=== PATIENT | female | born 1985 | race Caucasian/White ===

== ENCOUNTER 2016-12-26 20:55 | Emergency (ER) | payer SELFPAY ==
[~2016-12-26 20:55] MED LIST: CIPR500T94 PO; METR500T PO; OXYC-323 PO
[2016-12-26] MEDS ORDERED: LORAZEPAM 1 MG TABLET. PO ONE (21:30)
[2016-12-26] MEDS ORDERED: METOCLOPRAMIDE HCL 10 MG/2 ML VIAL. IV ONE (21:30)
[2016-12-26] MEDS ORDERED: IV NORMAL SALINE 1000ML BAG 1,000 ML IV ONE (21:30)
[2016-12-26] MEDS ORDERED: DIPHENHYDRAMINE 50 MG/ML VIAL IVP ONE (21:30)
[2016-12-26 22:24] VITALS: BP 143/79
--- NOTE | 2016-12-26 22:47 | PHYS DOC ---
Past Medical History Past Medical History: Asthma, COPD Additional Past Medical Histor: emphysema, chrohns Past Surgical History: Appendectomy Alcohol Use: None Drug Use: None Adult General Chief Complaint Chief Complaint: HEADACHE HPI HPI 31-year-old female presenting to the emergency department with headache. She has a history of headaches and her headache is similar to her previous migraines. She denies any focal numbness weakness or tingling. She denies vision changes. Her pain is moderate to severe. It is nonradiating sharp and without alleviating factors. Review of systems is negative for chest pain shortness of breath nausea vomiting. All other review of systems is negative unless otherwise noted in history of present illness. Review of Systems Review of Systems SEE ABOVE. Current Medications Current Medications Current Medications Medications (Trade) Dose Ordered Sig/Evelia Start Time Stop Time Status Last Admin Dose Admin Diphenhydramine HCl 50 mg 50 mg 1X ONCE 12/26/16 21:30 12/26/16 21:31 DC 12/26/16 21:51 50 MG Lorazepam (Ativan) 0.5 mg 1X ONCE 12/26/16 21:30 12/26/16 21:31 DC 12/26/16 21:52 0.5 MG Metoclopramide HCl (Reglan) 20 mg 1X ONCE 12/26/16 21:30 12/26/16 21:31 DC 12/26/16 21:30 20 MG Sodium Chloride (Iv Sodium Chloride 0.9% 1000ml Bag) 1,000 ml @ 1,000 mls/hr 1X ONCE 12/26/16 21:30 12/26/16 22:29 DC 12/26/16 21:30 1,000 MLS/HR Allergies Allergies Allergies Coded Allergies Type Severity Reaction Last Updated Verified codeine Allergy Severe Swelling 10/17/16 Yes doxycycline Allergy Severe Swelling 10/17/16 Yes Physical Exam Physical Exam Constitutional: Well developed, well nourished, no acute distress, non-toxic appearance. HENT: Normocephalic, atraumatic, bilateral external ears normal, oropharynx moist, no oral exudates, nose normal. [] Eyes: PERRLA, EOMI, conjunctiva normal, no discharge. Neck: Normal range of motion, no tenderness, supple, no stridor. [] Cardiovascular:Heart rate regular rhythm, no murmur Lungs & Thorax: Bilateral breath sounds clear to auscultation [] Abdomen: Bowel sounds normal, soft, no tenderness, no masses, no pulsatile masses. [] Skin: Warm, dry, no erythema, no rash. Back: No tenderness, no CVA tenderness. [] Extremities: No tenderness, no cyanosis, no clubbing, ROM intact, no edema. Neurologic: Mental status: Awake oriented and alert x3 Cranial nerves: Extraocular movements intact, eyebrows mauri bilaterally smile symmetric, uvula elevation, shoulder shrug intact, tongue protrusion normal Sensation: equal and normal in all extremities Strength: 5/5 in upper and lower extremities bilaterally Psychologic: Affect normal, judgement normal, mood normal. [] Current Patient Data Vital Signs Vital Signs Date Time Temp Pulse Resp B/P Pulse Ox O2 Delivery O2 Flow Rate FiO2 12/26/16 22:24 87 18 143/79 97 Room Air EKG EKG [] Radiology/Procedures Radiology/Procedures [] Course & Med Decision Making Course & Med Decision Making Pertinent Labs and Imaging studies reviewed. (See chart for details) [] 31-year-old female presenting to the emergency department a headache similar to her previous headaches. Vital signs showed mild hypertension. Pulse and respiratory rate within normal limits. Normal neurologic exam is the pertinent physical exam here. Head CT negative. IV established along with blood work and oral anxiety medications administered. Patient sleeping comfortably in our examination room on repeat evaluation. Patient subsequently discharged home to follow up with PCP for chronic migraine management. Dragon Disclaimer Dragon Disclaimer This electronic medical record was generated, in whole or in part, using a voice recognition dictation system. Departure Departure Impression: Primary Impression: Migraine Disposition: 01 HOME, SELF-CARE Condition: STABLE Referrals: NO PCP (PCP) TATIANA NELSON MD Patient Instructions: General Headache Without Cause, [id number] Additional Instructions: Thank you for allowing us to participate in your care today. Followup with your primary care physician in 3 days if your symptoms do not improve. If you do not have a primary care provider you can ask for a list of our primary care providers. Return to the emergency department you have any new or concerning findings. This should be evaluated by the primary care physician and any necessary consulting services for continued management within a few days after discharge. Return to emergency room if you have any new or concerning symptoms including but not limited to fever, chills, nausea, vomiting, intractable pain, any new rashes, chest pain, shortness of air, uncontrolled bleeding, difficulty breathing, and/or vision loss. SIRI BA MD Dec 26, 2016 22:47
--- NOTE | 2016-12-26 23:01 | RAD ---
PROCEDURE CT head without contrast. HISTORY Severe headache. Poor historian. TECHNIQUE Noncontrast CT head was obtained. One or more of the following individualized dose reduction techniques were utilized for this exam: 1. Automated exposure control. 2. Adjustment of the mA and/or kV according to patient's size. 3. Use of iterative reconstruction technique. COMPARISON July 09, 2015. FINDINGS The ventricles are normal in size and configuration. There is no intracranial hemorrhage or extra-axial fluid collection. There is no mass effect or midline shift. De Souza-white differentiation is preserved. There is no depressed skull fracture. The included paranasal sinuses and mastoid air cells are clear. IMPRESSION No acute intracranial findings. Electronically signed by: Rell Salgado MD (Dec 26, 2016 22:59:58)
== END 2016-12-26 23:40 | disposition home or self-care (01) ==
LOC: ER 20:55
DX: G43.909 Migraine, unspecified, not intractable, without status migrainosus (principal); J44.0 Chronic obstructive pulmonary disease with (acute) lower respiratory infection; J45.909 Unspecified asthma, uncomplicated; K50.90 Crohn's disease, unspecified, without complications; Z88.5 Allergy status to narcotic agent; Z88.1 Allergy status to other antibiotic agents; Z90.49 Acquired absence of other specified parts of digestive tract
CPT/HCPCS: 70450; 96361; 96374; 96375; 99284; J1200; J2765; J7030

== ENCOUNTER 2017-03-12 18:32 | Emergency (ER) | payer SELFPAY ==
[~2017-03-12] VITALS: Ht 162.6 cm; Wt 61.2 kg
[2017-03-12 18:45] VITALS: BP 157/100
[2017-03-12] MEDS ORDERED: ONDANSETRON PF 4 MG/2 ML VIAL. IV PRN (19:00)
[2017-03-12] MEDS ORDERED: IV NORMAL SALINE 1000ML BAG 1,000 ML IV ONE (19:00)
--- NOTE | 2017-03-12 19:04 | PHYS DOC ---
Past Medical History Past Medical History: Asthma, COPD Additional Past Medical Histor: emphysema, chrohns Past Surgical History: Appendectomy Alcohol Use: None Drug Use: None Adult General Chief Complaint Chief Complaint: ABDOMINAL PAIN HPI HPI 31 y.o f with a hx of chrons disease presenting to the Ed with abd pain. it is in the RLQ, severe nonradiating and associated with nausea. She denies being preg. She thinks it is a " chrons flare". ROS neg for cp, sob, diarrhea. She denies fever chills. the remainder of the ros is neg unless noted elsewhere. Pertinent exam: the pt has ttp in the rlq. no rebound or gaurding. lung ctab. otherwise unremarkable. ed course: 31 yo F presenting with RLQ abd pain. vitals. IVF and nausea and pain meds administered. labs taken. ct abd pelvis obtained. on reexamination, her abd was nontender and she was feeling better. Review of Systems Review of Systems see above Current Medications Current Medications Current Medications Medications (Trade) Dose Ordered Sig/Evelia Start Time Stop Time Status Last Admin Dose Admin Hydromorphone HCl (Dilaudid) 1 mg 1X ONCE 03/12/17 21:45 03/12/17 21:46 Info (Do NOT chart on this entry -- for MONITORING) 1 each PRN DAILY PRN 03/12/17 20:15 03/14/17 20:14 Iohexol (Omnipaque 300 Mg/ml) 75 ml 1X ONCE 03/12/17 20:15 03/12/17 20:16 DC 03/12/17 20:59 75 ML Metoclopramide HCl (Reglan) 10 mg 1X ONCE 03/12/17 21:45 03/12/17 21:46 Ondansetron HCl (Zofran) 4 mg PRN Q30MIN PRN 03/12/17 19:00 03/12/17 19:27 4 MG Sodium Chloride 1,000 ml @ 1,000 mls/hr 1X ONCE 03/12/17 19:00 03/12/17 19:59 DC 03/12/17 19:28 1,000 MLS/HR Allergies Allergies Allergies Coded Allergies Type Severity Reaction Last Updated Verified codeine Allergy Severe Swelling 10/17/16 Yes doxycycline Allergy Severe Swelling 10/17/16 Yes Physical Exam Physical Exam Constitutional: Well developed, well nourished, no acute distress, non-toxic appearance. HENT: Normocephalic, atraumatic, bilateral external ears normal, oropharynx moist, no oral exudates, nose normal. [] Eyes: PERRLA, EOMI, conjunctiva normal, no discharge. [] Neck: Normal range of motion, no tenderness, supple, no stridor. Cardiovascular:Heart rate regular rhythm, no murmur [] Lungs & Thorax: Bilateral breath sounds clear to auscultation Abdomen: see above Skin: Warm, dry, no erythema, no rash. [] Back: No tenderness, no CVA tenderness. Extremities: No tenderness, no cyanosis, no clubbing, ROM intact, no edema. [] Neurologic: Alert and oriented X 3, normal motor function, normal sensory function, no focal deficits noted. [] Psychologic: Affect normal, judgement normal, mood normal. [] Current Patient Data Vital Signs Vital Signs Date Time Temp Pulse Resp B/P (MAP) Pulse Ox O2 Delivery O2 Flow Rate FiO2 03/12/17 20:33 20 100 Room Air 03/12/17 18:45 98.2 118 157/100 (119) 98.2 Lab Values Laboratory Tests Test 03/12/17 19:00 03/12/17 19:41 03/12/17 20:30 White Blood Count 10.5 x10^3/uL (4.0-11.0) Red Blood Count 4.71 x10^6/uL (3.50-5.40) Hemoglobin 15.1 g/dL (12.0-15.5) Hematocrit 44.8 % (36.0-47.0) Mean Corpuscular Volume 95 fL (79-100) Mean Corpuscular Hemoglobin 32 pg (25-35) Mean Corpuscular Hemoglobin Concent 34 g/dL (31-37) Red Cell Distribution Width 13.9 % (11.5-14.5) Platelet Count 186 x10^3/uL (140-400) Neutrophils (%) (Auto) 48 % (31-73) Lymphocytes (%) (Auto) 39 % (24-48) Monocytes (%) (Auto) 9 % (0-9) Eosinophils (%) (Auto) 3 % (0-3) Basophils (%) (Auto) 1 % (0-3) Neutrophils # (Auto) 5.0 x10^3uL (1.8-7.7) Lymphocytes # (Auto) 4.1 x10^3/uL (1.0-4.8) Monocytes # (Auto) 0.9 x10^3/uL (0.0-1.1) Eosinophils # (Auto) 0.3 x10^3/uL (0.0-0.7) Basophils # (Auto) 0.1 x10^3/uL (0.0-0.2) Sodium Level 140 mmol/L (136-145) Potassium Level 3.8 mmol/L (3.5-5.1) Chloride Level 105 mmol/L (98-107) Carbon Dioxide Level 23 mmol/L (21-32) Anion Gap 12 (6-14) Blood Urea Nitrogen 10 mg/dL (7-20) Creatinine 0.7 mg/dL (0.6-1.0) Estimated GFR (Cockcroft-Gault) 97.6 BUN/Creatinine Ratio 14 (6-20) Glucose Level 96 mg/dL (70-99) Calcium Level 9.1 mg/dL (8.5-10.1) Total Bilirubin 0.8 mg/dL (0.2-1.0) Aspartate Amino Transferase (AST) 25 U/L (15-37) Alanine Aminotransferase (ALT) 40 U/L (14-59) Alkaline Phosphatase 93 U/L (46-116) Total Protein 7.8 g/dL (6.4-8.2) Albumin 4.0 g/dL (3.4-5.0) Albumin/Globulin Ratio 1.1 (1.0-1.7) Lipase 99 U/L (73-393) POC Urine HCG, Qualitative Hcg negative (Negative) Urine Collection Type Unknown Urine Color Yellow Urine Clarity Clear Urine pH 6.5 Urine Specific [place] 1.010 Urine Protein Negative mg/dL (NEG-TRACE) Urine Glucose (UA) Negative mg/dL (NEG) Urine Ketones (Stick) Negative mg/dL (NEG) Urine Blood Negative (NEG) Urine Nitrite Negative (NEG) Urine Bilirubin Negative (NEG) Urine Urobilinogen Dipstick 0.2 mg/dL (0.2 mg/dL) Urine Leukocyte Esterase Negative (NEG) Urine RBC 0 /HPF (0-2) Urine WBC Occ /HPF (0-4) Urine Squamous Epithelial Cells Many /LPF Urine Bacteria 0 /HPF (0-FEW) Laboratory Tests 03/12/17 19:00 Laboratory Tests 03/12/17 19:00 EKG EKG [] Radiology/Procedures Radiology/Procedures PROCEDURE: CT ABD PELV W/ IV CONTRST ONLY PQRS Compliance Statement: One or more of the following individualized dose reduction techniques were utilized for this examination: 1. Automated exposure control 2. Adjustment of the mA and/or kV according to patient size 3. Use of iterative reconstruction technique CT ABD PELV W/ IV CONTRST ONLY Clinical Indication: severe LLQ pain x several days, hx Crohn's, hx ovarian cysts, Comparison: CT abdomen and pelvis with contrast August 13, 2015. Technique: Helical CT imaging of the abdomen and pelvis is performed after 75 cc Omnipaque 350 IV contrast. Oral contrast not given. Findings: There is a 3 mm nodule in the left lower lobe, image 2. No follow-up is required per Fleischner Society criteria which is intended for adults greater than 35. Lungs otherwise clear. No pleural abnormality. Cardiac size normal. Liver, gallbladder, spleen, pancreas, adrenal glands, abdominal aorta, and kidneys are normal. Evaluation of bowel is limited without oral contrast. There are a few diverticula of the colon without inflammation. No colon wall thickening is identified. The terminal ileum is not thickened. Appendix surgically absent. No abdominal adenopathy or free fluid is seen. No obvious abnormality of the stomach. No dilated small bowel. Uterus unremarkable. IUD in the uterus, position appears appropriate. There appears to be a 1.7 cm peripherally enhancing right ovarian follicle. Finding likely physiologic. Left-sided follicle was seen on prior study. No pelvic free fluid. Urinary bladder is normal. No acute bone abnormality. IMPRESSION: No acute abdominal or pelvic abnormality. Electronically signed by: Gilberto Rausch MD (03/12/2017 9:13 PM) DICTATED and SIGNED BY: GILBERTO RAUSCH MD DATE: 03/12/172104[] Course & Med Decision Making Course & Med Decision Making Pertinent Labs and Imaging studies reviewed. (See chart for details) --- Assumed care from Dr. Ba at the end of shift. CT results as above. I went to the room to reassess the patient and she had vomited once. Give additional dose of Dilaudid and Reglan and she felt better. She was requesting discharge home. Recommended rest, by mouth hydration with small sips of clear liquid, gave prescriptions for Zofran for nausea and Newcomb for pain. No drinking alcohol or driving while taking Newcomb. Follow-up with primary care physician in 2-3 days. Return to the emergency department for high fever, severe pain, uncontrolled vomiting, any otherwise worsening condition. Discharged home in stable condition. Sindy Norris MD [] Dragon Disclaimer Dragon Disclaimer This electronic medical record was generated, in whole or in part, using a voice recognition dictation system. Departure Departure Impression: Primary Impression: Abdominal pain Disposition: HOME, SELF-CARE Condition: IMPROVED Referrals: NO PCP (PCP) ORIN WEN MD Patient Instructions: Abdominal Pain Additional Instructions: You were seen in the emergency department today for abdominal pain. Tests here did not show serious cause of symptoms. Please rest, stay hydrated by drinking small sips of clear liquid, take for Zofran for nausea and Newcomb for pain. No drinking alcohol or driving while taking Newcomb. Follow-up with primary care physician in 2-3 days. Return to the emergency department for high fever, severe pain, uncontrolled vomiting, any otherwise worsening condition. Scripts Hydrocodone/Apap 5-325 (NORCO 5-325 TABLET) 1 Each Tablet 1 TAB PO PRN Q6HRS Y for PAIN, #10 TAB 0 Refills Prov: SINDY NORRIS MD 03/12/17 Ondansetron (ZOFRAN ODT) 4 Mg Tab.rapdis 1 TAB SL Q8HRS Y for NAUSEA, #10 TAB Prov: SINDY NORRIS MD 03/12/17 SIRI BA MD Mar 12, 2017 19:04 SINDY NORRIS MD Mar 12, 2017 21:58
[2017-03-12 19:10] LABS: BASO # 0.1 x10^3/uL (0.0-0.2); BASO % 1 % (0-3); EOS % 3 % (0-3); HEMATOCRIT 44.8 % (36.0-47.0); HEMOGLOBIN 15.1 g/dL (12.0-15.5); LYMPH # 4.1 x10^3/uL (1.0-4.8); LYMPH % 39 % (24-48); MEAN CORPUSCULAR HEMOGLOBIN 32 pg (25-35); MEAN CORPUSCULAR HGB CONC 34 g/dL (31-37); MEAN CORPUSCULAR VOLUME 95 fL (79-100); MONO % 9 % (0-9); NEUT % 48 % (31-73); PLATELET COUNT 186 x10^3/uL (140-400); RED BLOOD COUNT 4.71 x10^6/uL (3.50-5.40); RED CELL DISTRIBUTION WIDTH 13.9 % (11.5-14.5); WHITE BLOOD COUNT 10.5 x10^3/uL (4.0-11.0)
[2017-03-12 19:19] LABS: CALCIUM 9.1 mg/dL (8.5-10.1); CREATININE 0.7 mg/dL (0.6-1.0); GFR 97.6; POTASSIUM 3.8 mmol/L (3.5-5.1)
[2017-03-12 19:26] LABS: ALBUMIN/GLOBULIN RATIO 1.1 (1.0-1.7); TOTAL BILIRUBIN 0.8 mg/dL (0.2-1.0); TOTAL PROTEIN 7.8 g/dL (6.4-8.2)
[2017-03-12] MEDS: HYDROmorphone 2 MG/ML VIAL IV PRN ×2 (19:27→20:33)
[2017-03-12] MEDS ORDERED: IOHEXOL 300 MG/ML 75 ML VIAL IV ONE (20:15)
[2017-03-12] MEDS ORDERED: CONTRAST GIVEN MC PRN (20:15)
[2017-03-12 20:44] LABS: BILIRUBIN,URINE NEGATIVE (NEG); GLUCOSE,URINE NEGATIVE (NEG); NITRITE,URINE NEGATIVE (NEG); PH,URINE 6.5; PROTEIN,URINE NEGATIVE (NEG-TRACE); UROBILINOGEN,URINE 0.2 mg/dL (0.2 mg/dL)
[2017-03-12 20:59] LABS: BACTERIA,URINE 0 /HPF (0-FEW); RBC,URINE 0 /HPF (0-2); SQUAMOUS EPITHELIAL CELL,UR MANY /LPF; WBC,URINE OCC /HPF (0-4)
--- NOTE | 2017-03-12 21:17 | RAD ---
PQRS Compliance Statement: One or more of the following individualized dose reduction techniques were utilized for this examination: 1. Automated exposure control 2. Adjustment of the mA and/or kV according to patient size 3. Use of iterative reconstruction technique CT ABD PELV W/ IV CONTRST ONLY Clinical Indication: severe LLQ pain x several days, hx Crohn's, hx ovarian cysts, Comparison: CT abdomen and pelvis with contrast August 13, 2015. Technique: Helical CT imaging of the abdomen and pelvis is performed after 75 cc Omnipaque 350 IV contrast. Oral contrast not given. Findings: There is a 3 mm nodule in the left lower lobe, image 2. No follow-up is required per Fleischner Society criteria which is intended for adults greater than 35. Lungs otherwise clear. No pleural abnormality. Cardiac size normal. Liver, gallbladder, spleen, pancreas, adrenal glands, abdominal aorta, and kidneys are normal. Evaluation of bowel is limited without oral contrast. There are a few diverticula of the colon without inflammation. No colon wall thickening is identified. The terminal ileum is not thickened. Appendix surgically absent. No abdominal adenopathy or free fluid is seen. No obvious abnormality of the stomach. No dilated small bowel. Uterus unremarkable. IUD in the uterus, position appears appropriate. There appears to be a 1.7 cm peripherally enhancing right ovarian follicle. Finding likely physiologic. Left-sided follicle was seen on prior study. No pelvic free fluid. Urinary bladder is normal. No acute bone abnormality. IMPRESSION: No acute abdominal or pelvic abnormality. Electronically signed by: Gilberto Rausch MD (03/12/2017 9:13 PM)
[2017-03-12] MEDS ORDERED: METOCLOPRAMIDE HCL 10 MG/2 ML VIAL. IV ONE (21:45)
[2017-03-12] MEDS ORDERED: HYDROmorphone 2 MG/ML VIAL IV ONE (21:45)
[2017-03-12] MEDS ORDERED: ONDA4TAB10 SL (21:58)
[2017-03-12] MEDS ORDERED: HYDR-971 PO (21:58)
== END 2017-03-12 22:08 | disposition home or self-care (01) ==
LOC: ER 18:32
DX: R10.31 Right lower quadrant pain (principal); R11.2 Nausea with vomiting, unspecified; J43.9 Emphysema, unspecified; Z90.49 Acquired absence of other specified parts of digestive tract; Z88.5 Allergy status to narcotic agent; Z88.1 Allergy status to other antibiotic agents
CPT/HCPCS: 36415; 74177; 80053; 81001; 81025; 83690; 85027; 96361; 96374; 96375; 96376; 99285; J1170; J2405; J2765; J7030; Q9967

== ENCOUNTER 2017-03-27 16:57 | Emergency (ER) | payer OTHER ==
[~2017-03-27] VITALS: Ht 160 cm; Wt 61.2 kg
[~2017-03-27 16:57] MED LIST changes: +HYDR-971 PO; +ONDA4TAB10 SL
[2017-03-27 17:17] VITALS: BP 120/70
--- NOTE | 2017-03-27 17:20 | PHYS DOC ---
Past Medical History Past Medical History: Asthma, COPD Additional Past Medical Histor: emphysema, chrohns Past Surgical History: Appendectomy Alcohol Use: None Drug Use: None Adult General Chief Complaint Chief Complaint: SEXUALLY TRANSMITTED DISEASE [facility] HPI Patient is a 31 year old female presents the emergency department stating that her ex-boyfriend had called parents that he tested positive for gonorrhea. Patient states that she does not have any vaginal discharge at this time except for her menstrual cycle. She denies any abdominal pain any nausea vomiting or fever or chills. Patient does state that she is allergic to doxycycline. Patient states she has had 2 sexual partners. Review of Systems Review of Systems Constitutional: Denies fever or chills [] Eyes: Denies change in visual acuity, redness, or eye pain [] HENT: Denies nasal congestion or sore throat [] Respiratory: Denies cough or shortness of breath [] Cardiovascular: No additional information not addressed in HPI [] GI: Denies abdominal pain, nausea, vomiting, bloody stools or diarrhea [] : dysuria denies hematuria [] Musculoskeletal: Denies back pain or joint pain [] Integument: Denies rash or skin lesions [] Neurologic: Denies headache, focal weakness or sensory changes [] Endocrine: Denies polyuria or polydipsia [] Current Medications Current Medications Current Medications Medications (Trade) Dose Ordered Sig/Evelia Start Time Stop Time Status Last Admin Dose Admin Azithromycin (Zithromax) 1,000 mg 1X ONCE 03/27/17 17:30 03/27/17 17:31 DC 03/27/17 17:48 1,000 MG Ceftriaxone Sodium (Rocephin Im) 250 mg 1X ONCE 03/27/17 17:30 03/27/17 17:31 DC 03/27/17 17:48 250 MG Metronidazole (Flagyl) 2,000 mg 1X ONCE 03/27/17 17:30 03/27/17 17:31 DC 03/27/17 17:48 2,000 MG Allergies Allergies Allergies Coded Allergies Type Severity Reaction Last Updated Verified codeine Allergy Severe Swelling 10/17/16 Yes doxycycline Allergy Severe Swelling 10/17/16 Yes Physical Exam Physical Exam Constitutional: Well developed, well nourished, no acute distress, non-toxic appearance. [] HENT: Normocephalic, atraumatic, bilateral external ears normal, oropharynx moist, no oral exudates, nose normal. [] Eyes: PERRLA, EOMI, conjunctiva normal, no discharge. [] Neck: Normal range of motion, no tenderness, supple, no stridor. [] Cardiovascular:Heart rate regular rhythm, no murmur [] Lungs & Thorax: Bilateral breath sounds clear to auscultation [] Abdomen: Bowel sounds hypoactive, soft, no tenderness, no masses, no pulsatile masses. [] Skin: Warm, dry, no erythema, no rash. [] Back: No tenderness Extremities: No tenderness, no cyanosis, no clubbing, ROM intact, no edema. [] Neurologic: Alert and oriented X 3, normal motor function, normal sensory function, no focal deficits noted. [] Psychologic: Affect normal, judgement normal, mood normal. [] Pelvic exam: speculum exam with minimal vaginal bleeding noted. Manual exam no CMT no adnexal tenderness noted. Current Patient Data Vital Signs Vital Signs Date Time Temp Pulse Resp B/P (MAP) Pulse Ox O2 Delivery O2 Flow Rate FiO2 03/27/17 17:17 98.5 119 24 99 Room Air 98.5 Lab Values Laboratory Tests Test 03/27/17 17:15 Urine Color [place] Urine Clarity Clear Urine pH 6.0 Urine Specific [place] >=1.030 Urine Protein 30 mg/dL (NEG-TRACE) Urine Glucose (UA) Negative mg/dL (NEG) Urine Ketones (Stick) Trace mg/dL (NEG) Urine Blood Small (NEG) Urine Nitrite Negative (NEG) Urine Bilirubin Small (NEG) Urine Urobilinogen Dipstick 1.0 mg/dL (0.2 mg/dL) Urine Leukocyte Esterase Small (NEG) Urine RBC 1-2 /HPF (0-2) Urine WBC 1-4 /HPF (0-4) Urine Squamous Epithelial Cells Occ /LPF Urine Amorphous Sediment Present /HPF Urine Bacteria Few /HPF (0-FEW) Urine Mucus Mod /LPF Microbiology 03/27/17 Wet Prep - Final, Complete EKG EKG [] Radiology/Procedures Radiology/Procedures [] Course & Med Decision Making Course & Med Decision Making Pertinent Labs and Imaging studies reviewed. (See chart for details) Wet prep was positive for bacterial vaginosis. Patient will be placed on Flagyl for the next 7 days. Patient was also positive for urinary tract infection which she'll be placed on Macrobid. Patient was treated for STDs with Rocephin Flagyl and Zithromax. Patient was provided with lab results and treatment regimen. She was also instructed to avoid sexual intercourse for the next 2 weeks. Patient agrees with discharge instructions treatment regimens and follow- up recommendations. [] Dragon Disclaimer Dragon Disclaimer This electronic medical record was generated, in whole or in part, using a voice recognition dictation system. Departure Departure Impression: Primary Impression: UTI (lower urinary tract infection) Additional Impressions: Concern about STD in female without diagnosis Bacterial vaginosis Disposition: HOME, SELF-CARE Condition: STABLE Referrals: NO PCP (PCP) Patient Instructions: Bacterial Vaginosis, [id number], Sexually Transmitted Disease, Urinary Tract Infection, [id number] Additional Instructions: You will be notified in approximately 3-4 days if you're test results are positive for any sexually transmitted infections. You have been treated for sexually transmitted infections however he should refrain from sexual intercourse for the next 2 weeks. He will also need to refrain from sexual intercourse until you partners have been treated if you test results come back positive. Your urine was positive for urinary tract infection. You have been provided with an antibiotic to treat her urinary tract infection. Drink plenty of fluids such as water and cranberry juice. Avoid cranberry juice cocktail, carbonated beverages, citrus fruits and alcohol sees her considered irritants to the bladder. Avoid taking the Flagyl prescription with alcohol as this may cause an upset stomach and abdominal pain and discomfort. Follow-up to primary care physician in the next 5-7 days. Return back to emergency department signs and symptoms of become worse. Scripts Nitrofurantoin Monohyd/M-Cryst (MACROBID 100 MG CAPSULE) 100 Mg Capsule 1 CAP PO BID, #14 CAP Prov: CATALINA OSMAN APRN 03/27/17 Metronidazole (FLAGYL) 500 Mg Tablet 1 TAB PO BID, #14 TAB Prov: CATALINA OSMAN APRN 03/27/17 Problem Qualifiers CATALINA OSMAN APRN Mar 27, 2017 17:20
[2017-03-27 17:23] LABS: BILIRUBIN,URINE SMALL (NEG); GLUCOSE,URINE NEGATIVE (NEG); NITRITE,URINE NEGATIVE (NEG); PROTEIN,URINE 30 mg/dL (NEG-TRACE)
[2017-03-27] MEDS ORDERED: metroNIDAZOLE 500 MG TABLET PO ONE (17:30)
[2017-03-27] MEDS ORDERED: cefTRIAXone IM 250 MG VIAL IM ONE (17:30)
[2017-03-27] MEDS ORDERED: AZITHROMYCIN 250 MG TABLET. PO ONE (17:30)
[2017-03-27 17:36] LABS: BACTERIA,URINE FEW /HPF (0-FEW); SQUAMOUS EPITHELIAL CELL,UR OCC /LPF
[2017-03-27] MEDS ORDERED: NITR100C62 PO (17:58)
[2017-03-27] MEDS ORDERED: METR500T PO (17:58)
== END 2017-03-27 18:05 | disposition home or self-care (01) ==
LOC: ER 16:57
DX: Z11.3 Encounter for screening for infections with a predominantly sexual mode of transmission (principal); N39.0 Urinary tract infection, site not specified; N76.0 Acute vaginitis; B96.89 Other specified bacterial agents as the cause of diseases classified elsewhere; J44.9 Chronic obstructive pulmonary disease, unspecified; K50.90 Crohn's disease, unspecified, without complications; Z90.49 Acquired absence of other specified parts of digestive tract
CPT/HCPCS: 81001; 81025; 87086; 87491; 87591; 96372; 99284; J0696; Q0111; Q0144

== ENCOUNTER 2017-04-19 20:22 | Emergency (ER) | payer OTHER ==
[~2017-04-19] VITALS: Ht 160 cm; Wt 61.2 kg
[~2017-04-19 20:22] MED LIST changes: +NITR100C62 PO
[2017-04-19 20:37] VITALS: BP 106/52
--- NOTE | 2017-04-19 20:59 | PHYS DOC ---
Past Medical History Past Medical History: Anxiety, Asthma, COPD Additional Past Medical Histor: emphysema, crohns Past Surgical History: Appendectomy, Other Additional Past Surgical Histo: d&c Alcohol Use: None Drug Use: None Adult General Chief Complaint Chief Complaint: TOE PROBLEM HPI HPI Patient is a 31 year old female presents to the emergency department with complaints of left great toe pain. She states that 30 minutes prior to arrival she kicked a wall in her trailer and has pain in the great toe now. Review of Systems Review of Systems Constitutional: Denies fever or chills [] Eyes: Denies change in visual acuity, redness, or eye pain [] HENT: Denies nasal congestion or sore throat [] Respiratory: Denies cough or shortness of breath [] Cardiovascular: No additional information not addressed in HPI [] GI: Denies abdominal pain, nausea, vomiting, bloody stools or diarrhea [] : Denies dysuria or hematuria [] Musculoskeletal: Left great toe pain Integument: Denies rash or skin lesions [] Neurologic: Denies headache, focal weakness or sensory changes [] Endocrine: Denies polyuria or polydipsia [] Current Medications Current Medications Current Medications Medications (Trade) Dose Ordered Sig/Evelia Start Time Stop Time Status Last Admin Dose Admin Tramadol HCl (Ultram) 50 mg 1X ONCE 04/19/17 21:00 04/19/17 21:01 DC 04/19/17 21:01 50 MG Allergies Allergies Allergies Coded Allergies Type Severity Reaction Last Updated Verified codeine Allergy Severe Swelling 10/17/16 Yes doxycycline Allergy Severe Swelling 10/17/16 Yes Physical Exam Physical Exam Skin: Warm, dry, no erythema, no rash. [] Extremities: Foot exam, no swelling, no erythema, no ecchymosis. Mild tenderness over the MTP of the great toe. Neurovascular intact distally. Current Patient Data Vital Signs Vital Signs Date Time Temp Pulse Resp B/P (MAP) Pulse Ox O2 Delivery O2 Flow Rate FiO2 04/19/17 21:01 18 99 Room Air EKG EKG [] Radiology/Procedures Radiology/Procedures Left foot x-ray unremarkable for acute fracture. [] Course & Med Decision Making Course & Med Decision Making Pertinent Labs and Imaging studies reviewed. (See chart for details) [] Dragon Disclaimer Dragon Disclaimer This electronic medical record was generated, in whole or in part, using a voice recognition dictation system. Departure Departure Impression: Primary Impression: Contusion, toe Disposition: 01 HOME, SELF-CARE Condition: STABLE Referrals: NO PCP (PCP) Patient Instructions: Contusion Scripts Naproxen (NAPROSYN) 500 Mg Tablet 500 MG PO BID, #20 TAB Prov: IGNACIA BUENO APRN 04/19/17 Problem Qualifiers Primary Impression: Contusion, toe Encounter type: initial encounter Toe: great toe Damage to nail status: without damage Laterality: left Qualified Codes: S90.112A - Contusion of left great toe without damage to nail, initial encounter IGNACIA BUENO APRN Apr 19, 2017 20:59
[2017-04-19] MEDS ORDERED: traMADol 50 MG TABLET PO ONE (21:00)
[2017-04-19] MEDS ORDERED: NAPR500T PO (21:21)
--- NOTE | 2017-04-20 07:48 | RAD ---
Left toes radiograph 04/19/2017 at 2058 hours Indication: Trauma to first digit on left foot 1 hour ago. Comparison: Left ankle radiograph 07/14/2008 Technique: 3 views of the left toes are provided. Findings: There is no acute fracture or dislocation. No joint space narrowing. No soft tissue swelling. No osseous erosion or soft tissue gas. Bone mineralization is within normal limits. Impression: No acute fracture or dislocation.
== END 2017-04-19 21:30 | disposition home or self-care (01) ==
LOC: ER 20:22
DX: S90.112A Contusion of left great toe without damage to nail, initial encounter (principal); F41.9 Anxiety disorder, unspecified; J43.9 Emphysema, unspecified; Z88.5 Allergy status to narcotic agent; Z88.1 Allergy status to other antibiotic agents; W22.09XA Striking against other stationary object, initial encounter; Y93.89 Activity, other specified; Y92.89 Other specified places as the place of occurrence of the external cause; Y99.8 Other external cause status
CPT/HCPCS: 73660; 99284

== ENCOUNTER 2017-05-31 13:10 | Emergency (ER) | payer OTHER ==
[~2017-05-31] VITALS: Ht 160 cm; Wt 61.2 kg
[~2017-05-31 13:10] MED LIST changes: +NAPR500T PO
[2017-05-31 13:44] LABS: BILIRUBIN,URINE NEGATIVE (NEG); GLUCOSE,URINE NEGATIVE (NEG); NITRITE,URINE NEGATIVE (NEG); PROTEIN,URINE NEGATIVE (NEG-TRACE); UROBILINOGEN,URINE 0.2 mg/dL (0.2 mg/dL)
[2017-05-31 14:00] LABS: BACTERIA,URINE FEW /HPF (0-FEW); SQUAMOUS EPITHELIAL CELL,UR FEW /LPF
[2017-05-31] MEDS ORDERED: KETOROLAC TROMETHAMINE 30 MG/ML INJ. IV ONE (14:00)
[2017-05-31] MEDS ORDERED: ONDANSETRON PF 4 MG/2 ML VIAL. IV ONE (14:00)
[2017-05-31 14:02] LABS: BASO # 0.1 x10^3/uL (0.0-0.2); BASO % 1 % (0-3); EOS % 2 % (0-3); HEMATOCRIT 41.5 % (36.0-47.0); HEMOGLOBIN 13.9 g/dL (12.0-15.5); LYMPH # 2.9 x10^3/uL (1.0-4.8); LYMPH % 37 % (24-48); MEAN CORPUSCULAR HEMOGLOBIN 32 pg (25-35); MEAN CORPUSCULAR HGB CONC 34 g/dL (31-37); MEAN CORPUSCULAR VOLUME 96 fL (79-100); MONO % 5 % (0-9); NEUT % 55 % (31-73); PLATELET COUNT 155 x10^3/uL (140-400); RED BLOOD COUNT 4.33 x10^6/uL (3.50-5.40); RED CELL DISTRIBUTION WIDTH 13.4 % (11.5-14.5)
[2017-05-31 14:13] LABS: CALCIUM 8.6 mg/dL (8.5-10.1); CREATININE 0.8 mg/dL (0.6-1.0); GFR 83.1; POTASSIUM 3.6 mmol/L (3.5-5.1)
[2017-05-31] MEDS ORDERED: fentaNYL PF VIAL 100 MCG/2 ML VIAL IV PRN (14:15)
[2017-05-31 14:18] LABS: ALBUMIN 3.8 g/dL (3.4-5.0); ALBUMIN/GLOBULIN RATIO 1.2 (1.0-1.7); TOTAL BILIRUBIN 0.8 mg/dL (0.2-1.0); TOTAL PROTEIN 7.1 g/dL (6.4-8.2)
[2017-05-31 14:27] VITALS: BP 97/66
[2017-05-31] MEDS ORDERED: IV NORMAL SALINE 1000ML BAG 1,000 ML IV ONE (14:30)
[2017-05-31] MEDS ORDERED: CONTRAST GIVEN MC PRN (14:30)
[2017-05-31] MEDS ORDERED: HALOPERIDOL LACTATE 5 MG/ML VIAL. IVP ONE (14:30)
[2017-05-31] MEDS ORDERED: IOHEXOL 300 MG/ML 75 ML VIAL IV ONE (14:30)
[2017-05-31 14:34] LABS: BARBITURATES NEG (NEG); BENZODIAZEPINES NEG (NEG); CANNABINOIDS POS (NEG); COCAINE NEG (NEG); METHADONE NEG (NEG); OPIATES NEG (NEG); PHENCYCLIDINE NEG (NEG)
--- NOTE | 2017-05-31 16:38 | ED.ADGEN ---
Past Medical History Past Medical History: Anxiety, Asthma, COPD Additional Past Medical Histor: emphysema, crohns Past Surgical History: Appendectomy, Other Additional Past Surgical Histo: d&c Alcohol Use: None Drug Use: None Adult General Chief Complaint Chief Complaint: ABDOMINAL PAIN HPI HPI Patient is a 32 year old woman, history of anxiety, asthma, Crohn's disease, who presents to the emergency department with complaint of abdominal pain. Patient states the pain began a few days ago, states that previously she was seen by Dr. Torres of GI, has not followed up and some time, states he previously was taking medications to prevent Crohn's flares, but has not taken medications on time due to cost lack of insurance. Patient is tearful in the emergency department, states she is experiencing cramping pain throughout her abdomen. She states she has had some diarrhea, is uncertain if she may possibly have blood in her stool. She denies any vomiting, complains of nausea. Denies any injuries, any urinary complaints, any concerns for STI exposures or , any weakness, numbness, tingling, chest pain or shortness breath, any fevers or chills. Review of Systems Review of Systems Constitutional: Denies fever or chills. [] Eyes: Denies change in visual acuity. [] HENT: Denies nasal congestion or sore throat. [] Respiratory: Denies cough or shortness of breath. [] Cardiovascular: Denies chest pain or edema. [] GI: Abdominal pain, nausea, no vomiting, positive for multiple episodes of diarrhea. : Denies dysuria. [] Musculoskeletal: Denies back pain or joint pain. [] Integument: Denies rash. [] Neurologic: Denies headache, focal weakness or sensory changes. [] Endocrine: Denies polyuria or polydipsia. [] Lymphatic: Denies swollen glands. [] Psychiatric: Denies depression or anxiety. [] Current Medications Current Medications Current Medications Medications (Trade) Dose Ordered Sig/Evelia Start Time Stop Time Status Last Admin Dose Admin Fentanyl Citrate (Fentanyl 2ml Vial) 50 mcg PRN Q15MIN PRN 05/31/17 14:15 05/31/17 16:24 DC 05/31/17 14:18 50 MCG Haloperidol Lactate (Haldol) 5 mg 1X ONCE 05/31/17 14:30 05/31/17 14:31 DC 05/31/17 14:25 5 MG Info (Do NOT chart on this entry -- for MONITORING) 1 each PRN DAILY PRN 05/31/17 14:30 05/31/17 16:24 DC Iohexol (Omnipaque 300 Mg/ml) 75 ml 1X ONCE 05/31/17 14:30 05/31/17 14:31 DC Ketorolac Tromethamine (Toradol) 10 mg 1X ONCE 05/31/17 14:00 05/31/17 14:01 DC 05/31/17 13:55 10 MG Ondansetron HCl (Zofran) 4 mg 1X ONCE 05/31/17 14:00 05/31/17 14:01 DC 05/31/17 13:55 4 MG Sodium Chloride 1,000 ml @ 1,000 mls/hr 1X ONCE 05/31/17 14:30 05/31/17 15:29 DC 05/31/17 14:18 1,000 MLS/HR Allergies Allergies Allergies Coded Allergies Type Severity Reaction Last Updated Verified codeine Allergy Severe Swelling 10/17/16 Yes doxycycline Allergy Severe Swelling 10/17/16 Yes Physical Exam Physical Exam Constitutional: Well developed, well nourished, patient is tearful, non-toxic appearance. [] HENT: Normocephalic, atraumatic, bilateral external ears normal, oropharynx moist, no oral exudates, nose normal. [] Eyes: PERRLA, EOMI, conjunctiva normal, no discharge. [] Neck: Normal range of motion, no tenderness, supple, no stridor. [] Cardiovascular:Heart rate regular rhythm, no murmur, S1, S2, rubs or gallops, [] Lungs & Thorax: Bilateral breath sounds clear to auscultation, no wheezing, rhonchi, rales. No chest wall crepitus or tenderness. [] Abdomen: Bowel sounds normal, soft, patient complaining of pain throughout, nontender, no rebound,, no guarding, no rigidity, no guarding, no masses, no pulsatile masses. [] Skin: Warm, dry, no erythema, no rash. [] Back: No tenderness, no CVA tenderness. [] Extremities: No tenderness, no cyanosis, no clubbing, ROM intact, no edema. [] Neurologic: Alert and oriented X 3, normal motor function, normal sensory function, no focal deficits noted. [] Psychologic: Patient is tearful, judgement normal. Current Patient Data Vital Signs Vital Signs Date Time Temp Pulse Resp B/P (MAP) Pulse Ox O2 Delivery O2 Flow Rate FiO2 05/31/17 14:27 87 20 97/66 (76) 100 Room Air 05/31/17 13:30 98.4 98.4 Lab Values Laboratory Tests Test 05/31/17 12:37 05/31/17 13:30 05/31/17 13:36 POC Urine HCG, Qualitative Hcg negative (Negative) Urine Collection Type Unknown Urine Color Yellow Urine Clarity Clear Urine pH 6.0 Urine Specific [place] 1.020 Urine Protein Negative mg/dL (NEG-TRACE) Urine Glucose (UA) Negative mg/dL (NEG) Urine Ketones (Stick) Negative mg/dL (NEG) Urine Blood Large (NEG) Urine Nitrite Negative (NEG) Urine Bilirubin Negative (NEG) Urine Urobilinogen Dipstick 0.2 mg/dL (0.2 mg/dL) Urine Leukocyte Esterase Negative (NEG) Urine RBC 11-20 /HPF (0-2) Urine WBC 11-20 /HPF (0-4) Urine Squamous Epithelial Cells Few /LPF Urine Bacteria Few /HPF (0-FEW) Urine Mucus Mod /LPF Urine Opiates Screen Neg (NEG) Urine Methadone Screen Neg (NEG) Urine Barbiturates Neg (NEG) Urine Phencyclidine Screen Neg (NEG) Urine Amphetamine/Methamphetamine Neg (NEG) Urine Benzodiazepines Screen Neg (NEG) Urine Cocaine Screen Neg (NEG) Urine Cannabinoids Screen Pos (NEG) Urine Ethyl Alcohol Neg (NEG) White Blood Count 8.0 x10^3/uL (4.0-11.0) Red Blood Count 4.33 x10^6/uL (3.50-5.40) Hemoglobin 13.9 g/dL (12.0-15.5) Hematocrit 41.5 % (36.0-47.0) Mean Corpuscular Volume 96 fL (79-100) Mean Corpuscular Hemoglobin 32 pg (25-35) Mean Corpuscular Hemoglobin Concent 34 g/dL (31-37) Red Cell Distribution Width 13.4 % (11.5-14.5) Platelet Count 155 x10^3/uL (140-400) Neutrophils (%) (Auto) 55 % (31-73) Lymphocytes (%) (Auto) 37 % (24-48) Monocytes (%) (Auto) 5 % (0-9) Eosinophils (%) (Auto) 2 % (0-3) Basophils (%) (Auto) 1 % (0-3) Neutrophils # (Auto) 4.4 x10^3uL (1.8-7.7) Lymphocytes # (Auto) 2.9 x10^3/uL (1.0-4.8) Monocytes # (Auto) 0.4 x10^3/uL (0.0-1.1) Eosinophils # (Auto) 0.1 x10^3/uL (0.0-0.7) Basophils # (Auto) 0.1 x10^3/uL (0.0-0.2) Sodium Level 139 mmol/L (136-145) Potassium Level 3.6 mmol/L (3.5-5.1) Chloride Level 104 mmol/L (98-107) Carbon Dioxide Level 24 mmol/L (21-32) Anion Gap 11 (6-14) Blood Urea Nitrogen 8 mg/dL (7-20) Creatinine 0.8 mg/dL (0.6-1.0) Estimated GFR (Cockcroft-Gault) 83.1 BUN/Creatinine Ratio 10 (6-20) Glucose Level 137 mg/dL (70-99) H Calcium Level 8.6 mg/dL (8.5-10.1) Total Bilirubin 0.8 mg/dL (0.2-1.0) Aspartate Amino Transferase (AST) 15 U/L (15-37) Alanine Aminotransferase (ALT) 22 U/L (14-59) Alkaline Phosphatase 75 U/L (46-116) Total Protein 7.1 g/dL (6.4-8.2) Albumin 3.8 g/dL (3.4-5.0) Albumin/Globulin Ratio 1.2 (1.0-1.7) Lipase 116 U/L (73-393) Laboratory Tests 05/31/17 13:36 Laboratory Tests 05/31/17 13:36 EKG EKG Not indicated. [] Radiology/Procedures Radiology/Procedures [] Course & Med Decision Making Course & Med Decision Making Pertinent Labs and Imaging studies reviewed. (See chart for details) Patient initially tearful, although she became calmer during my evaluation and was able to answer all questions appropriately, states she is unable to follow- up with GI due to financial constraints. Patient received Zofran and Toradol in the emergency department, laboratory studies were drawn. I spoke with patient about additional pain medication, and imaging as she is concerned that this could be a Crohn's flare. Patient's laboratory studies this point that have resulted do not reveal any concerning findings. Patient voiced understanding and agreement with this plan. However, before additional evaluation could be performed or interventions given, patient did remove her IV, and did elope from the emergency department. Dragon Disclaimer Dragon Disclaimer This electronic medical record was generated, in whole or in part, using a voice recognition dictation system. Departure Impression: Primary Impression: Abdominal pain Additional Impression: Left against medical advice Disposition: 07 AGAINST MEDICAL ADVICE Condition: STABLE Problem Qualifiers EWELINA GUTHRIE DO May 31, 2017 16:38
== END 2017-05-31 14:42 | disposition left against medical advice (07) ==
LOC: ER 13:10
DX: R10.9 Unspecified abdominal pain (principal); R19.7 Diarrhea, unspecified; R11.0 Nausea; J43.9 Emphysema, unspecified; Z53.21 Procedure and treatment not carried out due to patient leaving prior to being seen by health care provider
CPT/HCPCS: 36415; 80053; 80307; 81001; 81025; 83690; 85025; 96374; 96375; 99284; J1630; J1885; J2405; J3010; J7030; G0479

== ENCOUNTER 2017-09-28 19:45 | Emergency (ER) | payer OTHER ==
[2017-09-28 19:55] LABS: POC GLUCOSE 118 mg/dL (70-99)
[2017-09-28 20:10] LABS: URINE HCG POC HCG NEGATIVE (Negative)
[2017-09-28] MEDS: IV NORMAL SALINE 1000ML BAG 1,000 ML IV (20:13)
[2017-09-28] MEDS: HALOPERIDOL LACTATE 5 MG/ML VIAL. IVP (20:13)
[2017-09-28 20:34] LABS: BASO # 0.1 x10^3/uL (0.0-0.2); BASO % 0 % (0-3); EOS % 0 % (0-3); HEMATOCRIT 42.6 % (36.0-47.0); HEMOGLOBIN 14.1 g/dL (12.0-15.5); LYMPH # 1.2 x10^3/uL (1.0-4.8); LYMPH % 8 % (24-48); MEAN CORPUSCULAR HEMOGLOBIN 32 pg (25-35); MEAN CORPUSCULAR HGB CONC 33 g/dL (31-37); MEAN CORPUSCULAR VOLUME 97 fL (79-100); MONO % 5 % (0-9); NEUT % 87 % (31-73); PLATELET COUNT 145 x10^3/uL (140-400); RED BLOOD COUNT 4.42 x10^6/uL (3.50-5.40); RED CELL DISTRIBUTION WIDTH 13.1 % (11.5-14.5); WHITE BLOOD COUNT 15.2 x10^3/uL (4.0-11.0)
[2017-09-28 20:36] LABS: ADD MAN DIFF? YES; BILIRUBIN,URINE NEGATIVE (NEG); GLUCOSE,URINE NEGATIVE (NEG); NITRITE,URINE NEGATIVE (NEG); PROTEIN,URINE NEGATIVE (NEG-TRACE)
[2017-09-28 20:44] LABS: BARBITURATES NEG (NEG); BENZODIAZEPINES POS (NEG); CANNABINOIDS POS (NEG); COCAINE NEG (NEG); METHADONE NEG (NEG); OPIATES NEG (NEG); PHENCYCLIDINE NEG (NEG)
[2017-09-28 20:45] LABS: INR 1.2 (0.8-1.1); PROTHROMBIN TIME PATIENT 14.2 SEC (11.7-14.0)
[2017-09-28 20:46] LABS: PARTIAL THROMBOPLASTIN TIME 29 SEC (24-38)
[2017-09-28 20:51] LABS: ANION GAP 13 (6-14); BLOOD UREA NITROGEN 6 mg/dL (7-20); BUN/CREATININE RATIO 8 (6-20); CALCIUM 8.3 mg/dL (8.5-10.1); CARBON DIOXIDE 21 mmol/L (21-32); CHLORIDE 106 mmol/L (98-107); CREATININE 0.8 mg/dL (0.6-1.0); GFR 83.1; GLUCOSE 114 mg/dL (70-99); POTASSIUM 3.7 mmol/L (3.5-5.1); RBC,URINE 0 /HPF (0-2); SODIUM 140 mmol/L (136-145); WBC,URINE RARE /HPF (0-4)
[2017-09-28 20:52] LABS: BACTERIA,URINE FEW /HPF (0-FEW); ETHANOL, URINE NEG (NEG); SQUAMOUS EPITHELIAL CELL,UR MOD /LPF
[2017-09-28 20:53] LABS: ETHANOL < 10 mg/dL (0-10)
[2017-09-28 20:56] LABS: ALBUMIN 3.8 g/dL (3.4-5.0); ALBUMIN/GLOBULIN RATIO 1.2 (1.0-1.7); ALK PHOS 87 U/L (46-116); ALT (SGPT) 24 U/L (14-59); AST (SGOT) 16 U/L (15-37); TOTAL BILIRUBIN 0.9 mg/dL (0.2-1.0); TOTAL PROTEIN 7.1 g/dL (6.4-8.2)
[2017-09-28 20:59] LABS: NEG OBC SER NEG; POS OBC SER POS
[2017-09-28 21:13] LABS: PLT ESTIMATE ADEQUATE (ADEQUATE); TOXIC GRANULATION SLIGHT
[2017-09-28] MEDS: LIDOCAINE 2%/EPI 1:100,000 20 ML VIAL. INJ (21:53)
[2017-09-28] MEDS: NEOMY/BACITR/POLYMYXIN OINT PACKET. TP (22:55)
== END 2017-09-28 23:30 | disposition home or self-care (01) ==
LOC: ER 23:30
DX: S01.81XA Laceration without foreign body of other part of head, initial encounter (principal); J44.9 Chronic obstructive pulmonary disease, unspecified; G40.909 Epilepsy, unspecified, not intractable, without status epilepticus; K50.90 Crohn's disease, unspecified, without complications; Z88.1 Allergy status to other antibiotic agents; Z88.5 Allergy status to narcotic agent; X58.XXXA Exposure to other specified factors, initial encounter; Y93.89 Activity, other specified; Y99.8 Other external cause status; Y92.89 Other specified places as the place of occurrence of the external cause
CPT/HCPCS: 12013; 12051; 36415; 70450; 70486; 71010; 72125; 80053; 80307; 81001; 81025; 82962; 84703; 85007; 85025; 85610; 85730; 93005; 96361; 96374; 99285-25; G0480; J1630; J3490; J7030

== ENCOUNTER 2017-10-06 14:59 | Emergency (ER) | payer OTHER | END 2017-10-06 16:01 | disposition home or self-care (01) | LOC: ER 14:59 | DX: S01.111D Laceration without foreign body of right eyelid and periocular area, subsequent encounter (principal); S01.81XD Laceration without foreign body of other part of head, subsequent encounter; K50.90 Crohn's disease, unspecified, without complications; J44.9 Chronic obstructive pulmonary disease, unspecified; F41.9 Anxiety disorder, unspecified; Z88.5 Allergy status to narcotic agent; Z88.1 Allergy status to other antibiotic agents; W19.XXXD Unspecified fall, subsequent encounter | CPT/HCPCS: 99281 ==

== ENCOUNTER 2017-12-18 11:04 | Emergency (ER) | payer OTHER ==
[2017-12-18 12:38] LABS: BILIRUBIN,URINE NEGATIVE (NEG); CLARITY,URINE CLEAR; COLOR,URINE YELLOW; GLUCOSE,URINE NEGATIVE (NEG); NITRITE,URINE NEGATIVE (NEG); PH,URINE 7.5; PROTEIN,URINE NEGATIVE (NEG-TRACE)
[2017-12-18 12:45] LABS: INFLUENZA A PATIENT NEGATIVE (NEGATIVE); INFLUENZA B PATIENT NEGATIVE (NEGATIVE); OBC FLU VALID
[2017-12-18 12:51] LABS: BACTERIA,URINE 0 /HPF (0-FEW); RBC,URINE 0 /HPF (0-2); SQUAMOUS EPITHELIAL CELL,UR MOD /LPF; WBC,URINE 0 /HPF (0-4)
[2017-12-18] MEDS: IV NORMAL SALINE 1000ML BAG 1,000 ML IV (13:11)
[2017-12-18] MEDS: ACETAMINOPHEN 500 MG TABLET PO (13:12)
[2017-12-18] MEDS: ONDANSETRON PF 4 MG/2 ML VIAL. IV (13:12)
== END 2017-12-18 14:10 | disposition home or self-care (01) ==
LOC: ER 11:04
DX: O99.511 Diseases of the respiratory system complicating pregnancy, first trimester (principal); J06.9 Acute upper respiratory infection, unspecified; O99.611 Diseases of the digestive system complicating pregnancy, first trimester; K50.90 Crohn's disease, unspecified, without complications; J43.9 Emphysema, unspecified; J45.909 Unspecified asthma, uncomplicated; Z3A.10 10 weeks gestation of pregnancy; Z88.1 Allergy status to other antibiotic agents; Z88.5 Allergy status to narcotic agent
CPT/HCPCS: 81001; 87804; 87804-59; 96361; 96374; 99284-25; J2405; J7030

== ENCOUNTER 2018-03-12 08:33 | Observation (INO) | payer OTHER ==
[2018-03-12 09:32] LABS: AMNIO PT NEGATIVE; NEG OBC AMNIO NEG; POS OBC AMNIO POS
[2018-03-12 09:36] LABS: BILIRUBIN,URINE NEGATIVE (NEG); CLARITY,URINE CLEAR; COLOR,URINE YELLOW; GLUCOSE,URINE NEGATIVE (NEG); NITRITE,URINE NEGATIVE (NEG); PH,URINE 6.5; PROTEIN,URINE NEGATIVE (NEG-TRACE); UROBILINOGEN,URINE 0.2 mg/dL (0.2 mg/dL)
[2018-03-12 09:48] LABS: BARBITURATES NEG (NEG); BENZODIAZEPINES NEG (NEG); COCAINE NEG (NEG); METHADONE NEG (NEG); OPIATES NEG (NEG); PHENCYCLIDINE NEG (NEG)
[2018-03-12 09:50] LABS: AMPHETAMINE/METHAMPHETAMINE NEG (NEG); ETHANOL, URINE NEG (NEG)
[2018-03-12 09:52] LABS: CANNABINOIDS POS (NEG)
[2018-03-12 09:55] LABS: BACTERIA,URINE 0 /HPF (0-FEW); RBC,URINE 0 /HPF (0-2); SQUAMOUS EPITHELIAL CELL,UR OCC /LPF; WBC,URINE OCC /HPF (0-4)
[2018-03-12] MEDS ORDERED: IV DEXTROSE 5%-LACT RINGERS 1,000 ML IV (10:45)
[2018-03-12] MEDS ORDERED: IV RINGERS,LACTATED 1000ML 1,000 ML IV (11:00)
== END 2018-03-12 12:25 | disposition home or self-care (01) ==
LOC: 3 SO LND 08:33
DX: O42.912 Preterm premature rupture of membranes, unspecified as to length of time between rupture and onset of labor, second trimester (principal); O26.892 Other specified pregnancy related conditions, second trimester; R10.30 Lower abdominal pain, unspecified; Z3A.23 23 weeks gestation of pregnancy
CPT/HCPCS: 36415; 76805; 80307; 81001; 84112; 87491; 87591; G0378; G0379

== ENCOUNTER 2018-03-26 20:44 | Emergency (ER) | payer OTHER ==
[2018-03-26] MEDS: LIDOCAINE WITH 8.4% SOD BICARB 3 ML DISP.SYRIN. INJ (21:25)
== END 2018-03-26 22:20 | disposition home or self-care (01) ==
LOC: ER 22:20
DX: S61.411A Laceration without foreign body of right hand, initial encounter (principal); J45.909 Unspecified asthma, uncomplicated; F17.200 Nicotine dependence, unspecified, uncomplicated; Z88.5 Allergy status to narcotic agent; Z88.8 Allergy status to other drugs, medicaments and biological substances; W25.XXXA Contact with sharp glass, initial encounter; Y93.G1 Activity, food preparation and clean up; Y99.8 Other external cause status; Y92.89 Other specified places as the place of occurrence of the external cause
CPT/HCPCS: 12002; 99283

== ENCOUNTER 2018-04-19 13:28 | Observation (INO) | payer OTHER ==
[2018-04-19 14:12] LABS: BILIRUBIN,URINE NEGATIVE (NEG); CLARITY,URINE CLEAR; COLOR,URINE YELLOW; GLUCOSE,URINE NEGATIVE (NEG); NITRITE,URINE NEGATIVE (NEG); PH,URINE 7.5; PROTEIN,URINE NEGATIVE (NEG-TRACE); UROBILINOGEN,URINE 0.2 mg/dL (0.2 mg/dL)
[2018-04-19] MEDS: MAG HYDROX/ALUMINUM HYD/SIMETH 30 ML ORAL.SUSP PO (14:15)
[2018-04-19 14:54] LABS: BACTERIA,URINE FEW /HPF (0-FEW); RBC,URINE 0 /HPF (0-2); SQUAMOUS EPITHELIAL CELL,UR MANY /LPF
== END 2018-04-19 15:20 | disposition home or self-care (01) ==
LOC: 3 SO LND 13:28
DX: O26.893 Other specified pregnancy related conditions, third trimester (principal); R10.12 Left upper quadrant pain; Z3A.28 28 weeks gestation of pregnancy
CPT/HCPCS: 81001; 87086; G0378; G0379

== ENCOUNTER 2020-05-21 11:52 | Emergency (ER) | payer OTHER ==
[~2020-05-21] VITALS: Ht 160 cm; Wt 55.9 kg
[~2020-05-21 11:52] MED LIST changes: +HYDR-3164 PO; -HYDR-971 PO; +NAPR-683 PO; -NAPR500T PO; -OXYC-323 PO; +OXYC1TAB15 PO
[2020-05-21] MEDS ORDERED: DICYCLOMINE HCL 10 MG CAPSULE PO ONE (12:30)
[2020-05-21] MEDS ORDERED: diazePAM 5 MG TABLET PO ONE (12:30)
[2020-05-21] MEDS ORDERED: ONDANSETRON PF 4 MG/2 ML VIAL. IVP ONE (12:30)
[2020-05-21] MEDS ORDERED: FAMOTIDINE 20 MG/2 ML VIAL IVP ONE (12:30)
[2020-05-21] MEDS ORDERED: fentaNYL PF VIAL 100 MCG/2 ML VIAL IVP ONE ×2 (12:30→13:45)
[2020-05-21] MEDS ORDERED: IV NORMAL SALINE 1000ML BAG 1,000 ML IV ONE (12:30)
[2020-05-21 12:38] LABS: BASO % 1 % (0-3); EOS # 0.1 x10^3/uL (0.0-0.7); EOS % 1 % (0-3); HEMATOCRIT 41.3 % (36.0-47.0); LYMPH % 36 % (24-48); MEAN CORPUSCULAR HEMOGLOBIN 32 pg (25-35); MEAN CORPUSCULAR HGB CONC 34 g/dL (31-37); MEAN CORPUSCULAR VOLUME 95 fL (79-100); MONO # 0.4 x10^3/uL (0.0-1.1); MONO % 5 % (0-9); NEUT # 4.7 x10^3/uL (1.8-7.7); NEUT % 57 % (31-73); PLATELET COUNT 157 x10^3/uL (140-400); RED BLOOD COUNT 4.35 x10^6/uL (3.50-5.40); RED CELL DISTRIBUTION WIDTH 13.3 % (11.5-14.5); WHITE BLOOD COUNT 8.3 x10^3/uL (4.0-11.0)
[2020-05-21 12:42] LABS: BILIRUBIN,URINE NEGATIVE (NEG); CLARITY,URINE CLEAR; COLOR,URINE YELLOW; NITRITE,URINE NEGATIVE (NEG); PH,URINE 6.5 (<5.0-8.0); PROTEIN,URINE NEGATIVE (NEG-TRACE)
[2020-05-21 12:46] LABS: CALCIUM 8.9 mg/dL (8.5-10.1); CREATININE 0.7 mg/dL (0.6-1.0); GFR 95.2; POTASSIUM 3.7 mmol/L (3.5-5.1)
[2020-05-21 12:48] LABS: BARBITURATES NEG (NEG); BENZODIAZEPINES NEG (NEG); CANNABINOIDS POS (NEG); COCAINE NEG (NEG); METHADONE NEG (NEG); OPIATES NEG (NEG); PHENCYCLIDINE NEG (NEG)
[2020-05-21 12:54] LABS: ALBUMIN 3.7 g/dL (3.4-5.0); ALBUMIN/GLOBULIN RATIO 1.3 (1.0-1.7); MAGNESIUM 1.9 mg/dL (1.8-2.4); TOTAL BILIRUBIN 0.7 mg/dL (0.2-1.0); TOTAL PROTEIN 6.6 g/dL (6.4-8.2)
[2020-05-21 12:58] LABS: AMPHETAMINE/METHAMPHETAMINE NEG (NEG)
[2020-05-21 13:00] LABS: BACTERIA,URINE 0 /HPF (0-FEW); RBC,URINE 0 /HPF (0-2); SQUAMOUS EPITHELIAL CELL,UR MANY /LPF
[2020-05-21] MEDS ORDERED: IOHEXOL 300 MG/ML 100ML VIAL. PO ONE (13:00)
[2020-05-21] MEDS ORDERED: CONTRAST GIVEN. MC PRN (13:00)
--- NOTE | 2020-05-21 13:07 | EKG ---
[facility] [address] [place] [address] Test Date: 2020-05-21 Test Time: 12:13:18 Pat Name: ARIANNA NOVOA Department: Room: Gender: F [employer]: : 1985 Requested By: SIDRA PRABHAKRA Order Number: [id number] Reading MD: Measurements Intervals [place] Rate: 106 P: 74 [place]: 144 QRS: 74 QRSD: 86 T: 38 QT: 322 QTc: 429 Interpretive Statements SINUS TACHYCARDIA LEFT ATRIAL ABNORMALITY LOW LIMB LEAD VOLTAGE ABNORMAL ECG RI6.02 No previous ECG available for comparison
--- NOTE | 2020-05-21 13:44 | PHYS DOC ---
Past Medical History Past Medical History: Asthma, Other Additional Past Medical Histor: emphysema, crohns Past Surgical History: Appendectomy, Other Additional Past Surgical Histo: d&c Smoking Status: Current Every Day Smoker Alcohol Use: None Drug Use: None General Adult EDM: Chief Complaint: ABDOMINAL PAIN HPI: HPI: Patient is a 35 year old female with history of Crohn's who presents to the ED today complaining of 9 out of 10 left lower quadrant abdominal pain with nausea that began yesterday. Patient denies any diarrhea. Denies any vomiting. Is also complaining of moderate left lower back pain radiating to the left lower extremity that began yesterday and has gotten increasingly worse today. Pain is worse on weightbearing. Denies any known injury but states a couple days ago she jumped off a plane for fun but was not injured. Patient denies anything specifically relieving her pain. She states she tried taking prednisone and ibuprofen with no relief. Patient denies any loss of bowel/bladder function. Review of Systems: Review of Systems: Constitutional: Denies fever or chills. [] Eyes: Denies change in visual acuity. [] HENT: Denies nasal congestion or sore throat. [] Respiratory: Denies cough or shortness of breath. [] Cardiovascular: Denies chest pain or edema. [] GI: Reports left lower quadrant abdominal pain with nausea, denies vomiting, bloody stools or diarrhea. [] : Denies dysuria. [] Musculoskeletal: Reports left low back pain radiating to the left lower extremity. Integument: Denies rash. [] Neurologic: Denies headache, focal weakness or sensory changes. [] Heart Score: Risk Factors: Risk Factors: DM, Current or recent (<one month) smoker, HTN, HLP, family history of CAD, obesity. Risk Scores: Score 0 - 3: 2.5% MACE over next 6 weeks - Discharge Home Score 4 - 6: 20.3% MACE over next 6 weeks - Admit for Clinical Observation Score 7 - 10: 72.7% MACE over next 6 weeks - Early Invasive Strategies Current Medications: Current Medications Medications (Trade) Dose Ordered Sig/Evelia Start Time Stop Time Status Last Admin Dose Admin Diazepam (Valium) 5 mg 1X ONCE 05/21/20 12:30 05/21/20 12:31 DC 05/21/20 12:50 5 MG Dicyclomine HCl (Bentyl) 20 mg 1X ONCE 05/21/20 12:30 05/21/20 12:31 DC 05/21/20 12:50 20 MG Famotidine (Pepcid Vial) 20 mg 1X ONCE 05/21/20 12:30 05/21/20 12:31 DC 05/21/20 12:50 20 MG Fentanyl Citrate (Fentanyl 2ml Vial) 50 mcg 1X ONCE 05/21/20 13:45 05/21/20 13:46 Info (CONTRAST GIVEN -- Rx MONITORING) 1 each PRN DAILY PRN 05/21/20 13:00 05/23/20 12:59 Iohexol (Omnipaque 300 Mg/ml) 75 ml 1X ONCE 05/21/20 13:00 05/21/20 13:01 DC 05/21/20 13:10 75 ML Ondansetron HCl (Zofran) 4 mg 1X ONCE 05/21/20 12:30 05/21/20 12:31 DC 05/21/20 12:47 4 MG Sodium Chloride 1,000 ml @ 1,000 mls/hr 1X ONCE 05/21/20 12:30 05/21/20 13:29 DC 05/21/20 12:47 1,000 MLS/HR Allergies: Allergies: Allergies Coded Allergies Type Severity Reaction Last Updated Verified codeine Allergy Severe Swelling 10/17/16 Yes doxycycline Allergy Severe Swelling 10/17/16 Yes Physical Exam: PE: Constitutional: Well developed, well nourished, no acute distress, non-toxic appearance. [] HENT: Normocephalic, atraumatic, bilateral external ears normal, oropharynx moist, no oral exudates, nose normal. [] Eyes: PERRLA, EOMI, conjunctiva normal, no discharge. [] Neck: Normal range of motion, no tenderness, supple, no stridor. [] Cardiovascular:Heart rate regular rhythm, no murmur [] Lungs & Thorax: Bilateral breath sounds clear to auscultation [] Abdomen: Bowel sounds normal, soft, mild tenderness on palpation of the left l ower quadrant, no right upper quadrant or right lower quadrant tenderness,, no masses, no pulsatile masses. Exam difficult, patient restless Skin: Warm, dry, no erythema, no rash. [] Back: Tenderness on palpation of the left SI joint, no midline lumbar spine tenderness, no CVA tenderness. Positive left leg straight raise. Extremities: No tenderness, no cyanosis, no clubbing, ROM intact, no edema. [] Neurologic: Alert and oriented X 3, normal motor function, normal sensory function, no focal deficits noted. [] Psychologic: Restless, flat affect Current Patient Data: Labs: Laboratory Tests Test 05/21/20 12:03 05/21/20 12:07 White Blood Count 8.3 x10^3/uL (4.0-11.0) Red Blood Count 4.35 x10^6/uL (3.50-5.40) Hemoglobin 14.0 g/dL (12.0-15.5) Hematocrit 41.3 % (36.0-47.0) Mean Corpuscular Volume 95 fL (79-100) Mean Corpuscular Hemoglobin 32 pg (25-35) Mean Corpuscular Hemoglobin Concent 34 g/dL (31-37) Red Cell Distribution Width 13.3 % (11.5-14.5) Platelet Count 157 x10^3/uL (140-400) Neutrophils (%) (Auto) 57 % (31-73) Lymphocytes (%) (Auto) 36 % (24-48) Monocytes (%) (Auto) 5 % (0-9) Eosinophils (%) (Auto) 1 % (0-3) Basophils (%) (Auto) 1 % (0-3) Neutrophils # (Auto) 4.7 x10^3/uL (1.8-7.7) Lymphocytes # (Auto) 3.0 x10^3/uL (1.0-4.8) Monocytes # (Auto) 0.4 x10^3/uL (0.0-1.1) Eosinophils # (Auto) 0.1 x10^3/uL (0.0-0.7) Basophils # (Auto) 0.0 x10^3/uL (0.0-0.2) Urine Collection Type Unknown Urine Color Yellow Urine Clarity Clear Urine pH 6.5 (<5.0-8.0) Urine Specific [place] 1.010 (1.000-1.030) Urine Protein Negative mg/dL (NEG-TRACE) Urine Glucose (UA) Negative mg/dL (NEG) Urine Ketones (Stick) Negative mg/dL (NEG) Urine Blood Negative (NEG) Urine Nitrite Negative (NEG) Urine Bilirubin Negative (NEG) Urine Urobilinogen Dipstick 1.0 mg/dL (0.2 mg/dL) Urine Leukocyte Esterase Trace (NEG) Urine RBC 0 /HPF (0-2) Urine WBC 1-4 /HPF (0-4) Urine Squamous Epithelial Cells Many /LPF Urine Bacteria 0 /HPF (0-FEW) Sodium Level 141 mmol/L (136-145) Potassium Level 3.7 mmol/L (3.5-5.1) Chloride Level 104 mmol/L (98-107) Carbon Dioxide Level 25 mmol/L (21-32) Anion Gap 12 (6-14) Blood Urea Nitrogen 6 mg/dL (7-20) L Creatinine 0.7 mg/dL (0.6-1.0) Estimated GFR (Cockcroft-Gault) 95.2 BUN/Creatinine Ratio 9 (6-20) Glucose Level 122 mg/dL (70-99) H Calcium Level 8.9 mg/dL (8.5-10.1) Magnesium Level 1.9 mg/dL (1.8-2.4) Total Bilirubin 0.7 mg/dL (0.2-1.0) Aspartate Amino Transferase (AST) 17 U/L (15-37) Alanine Aminotransferase (ALT) 20 U/L (14-59) Alkaline Phosphatase 84 U/L (46-116) Total Protein 6.6 g/dL (6.4-8.2) Albumin 3.7 g/dL (3.4-5.0) Albumin/Globulin Ratio 1.3 (1.0-1.7) Lipase 87 U/L (73-393) Urine Opiates Screen Neg (NEG) Urine Methadone Screen Neg (NEG) Urine Barbiturates Neg (NEG) Urine Phencyclidine Screen Neg (NEG) Urine Amphetamine/Methamphetamine Neg (NEG) Urine Benzodiazepines Screen Neg (NEG) Urine Cocaine Screen Neg (NEG) Urine Cannabinoids Screen Pos (NEG) Ethyl Alcohol Level < 10 mg/dL (0-10) Urine Ethyl Alcohol Neg (NEG) POC Urine HCG, Qualitative Hcg negative (Negative) Laboratory Tests 05/21/20 12:03 Laboratory Tests 05/21/20 12:03 Vital Signs: Vital Signs Date Time Temp Pulse Resp B/P (MAP) Pulse Ox O2 Delivery O2 Flow Rate FiO2 05/21/20 12:08 97.9 122 22 144/60 (88) 100 Room Air 97.9 EKG: EKG: [] Radiology/Procedures: Radiology/Procedures: []PROCEDURE: CT ABD PELV W/ IV CONTRST ONLY INDICATION: Reason: abd pain hx of chrons / Spl. Instructions: INJ 75ML OMNI 300 / History: COMPARISON: March 2017 TECHNIQUE: Axial CT images obtained through the abdomen and pelvis with contrast. One or more of the following individualized dose reduction techniques were utilized for this examination: 1. Automated exposure control; 2. Adjustment of the mA and/or kV according to patient size; 3. Use of iterative reconstruction technique. FINDINGS: Abdominal aorta is nonaneurysmal. Liver is prominent in size without intrahepatic bile duct dilation. Pancreas unremarkable. Spleen unremarkable. No hydronephrosis. Urinary bladder is partially distended. Intrauterine device is seen. Small free fluid in the pelvis. Suture line is seen at the cecum. No dilated loops of bowel to suggest obstruction. There is some mild nonspecific haziness of the mesenteric fat seen. Degenerative changes of the spine. IMPRESSION: * No evidence of bowel obstruction. * Mild nonspecific haziness within the mesentery. Electronically signed by: Miri Brewster MD (05/21/2020 1:40 PM) [id number] DICTATED and SIGNED BY: MIRI BREWSTER MD DATE: 05/21/20 1340 Course & Med Decision Making: Course & Med Decision Making Pertinent Labs and Imaging studies reviewed. (See chart for details) This is a 35-year-old female patient with history of Crohn's presenting today complaining of left lower quadrant abdominal pain with nausea, no vomiting. Also complaining of left low back pain radiating to the left lower extremity. No cauda equina syndrome. Negative urine hCG, urine analysis negative for infection, CBC, CMP, lipase-no acute findings. CT of the abdomen and pelvic is negative for bowel obstruction noted for mild nonspecific haziness within the mesentery. Patient reports she does not have a PCP or GI doctor right now. She is requesting antibiotics she states typically her infection start slowly like this but in 3 days it gets worse. I gave a prescription for Flagyl and Cipro. Give a prescription for hydrocodone and Zofran for pain as well as dicyclomine. Also give a prescription for prednisone. Provided return precautions. Provided GI for follow-up. Lesia Disclaimer: Lesia Disclaimer: This electronic medical record was generated, in whole or in part, using a voice recognition dictation system. Departure Departure Impression: Primary Impression: Abdominal pain Qualified Codes: R10.32 - Left lower quadrant pain Additional Impression: Sciatica, left side Disposition: HOME, SELF-CARE Condition: STABLE Referrals: NO PCP (PCP) DIAZ TORRES MD follow up in 1-2 weeks GERALD CHEN MD follow up in 1 week Patient Instructions: Abdominal Pain, Sciatica with [facility] Additional Instructions: You were evaluated in the emergency room for abdominal pain and Sciatica. Take the prescribed medications as ordered. We provided you a GI specialist, contacted the office tomorrow and set up a follow-up appointment. Also follow up with Dr. Torres in 1 week Scripts Metronidazole (FLAGYL) 500 Mg Tablet 500 MG PO TID, #30 TAB Prov: SIDRA PRABHAKAR APRN 05/21/20 Ciprofloxacin Hcl (CIPRO) 500 Mg Tablet 1 TAB PO BID for 10 Days, #20 TAB 0 Refills Prov: SIDRA PRABHAKAR APRN 05/21/20 Prednisone (PREDNISONE ) 10 Mg Tablet 10 MG PO UD for PREDNISONE TAPER, #39 TAB 0 Refills Take 3 tablets by mouth twice a day for 3 days, then take 2 tablets by mouth twice a day for 3 days, then take 1 tablet by mouth twice a day for 3 days, then take 1 tablet by mouth daily x 3 days, then stop. Prov: SIDRA PRABHAKAR APRN 05/21/20 Cyclobenzaprine Hcl (CYCLOBENZAPRINE HCL) 10 Mg Tablet 1 TAB PO TID, #30 TAB Prov: SIDRA PRABHAKAR APRN 05/21/20 Hydrocodone/Apap 5-325 (NORCO 5-325 TABLET) 1 Each Tablet 1 TAB PO Q6HRS, #14 TAB Prov: SIRDA PRABHAKAR APRN 05/21/20 Justicifation of Admission Dx: Justifications for Admission: Justification of Admission Dx: N/A SIDRA PRABHAKAR APRN May 21, 2020 13:44
[2020-05-21] MEDS ORDERED: KETOROLAC 30 MG/ML VIAL. IVP ONE (14:00)
[2020-05-21] MEDS ORDERED: HYDROmorphone 2 MG/ML VIAL IV ONE (14:00)
[2020-05-21] MEDS ORDERED: CYCL10TA2 PO (14:02)
[2020-05-21] MEDS ORDERED: PRED-220 PO (14:02)
[2020-05-21] MEDS ORDERED: CIPR500T94 PO (14:02)
[2020-05-21] MEDS ORDERED: METR500T PO (14:02)
[2020-05-21] MEDS ORDERED: HYDR-3164 PO (14:02)
[2020-05-21 14:10] VITALS: BP 114/55
== END 2020-05-21 14:30 | disposition home or self-care (01) ==
LOC: ER 11:52
DX: R10.32 Left lower quadrant pain (principal); M54.42 Lumbago with sciatica, left side; R11.0 Nausea; J45.909 Unspecified asthma, uncomplicated; F17.200 Nicotine dependence, unspecified, uncomplicated; Z90.89 Acquired absence of other organs; Z98.890 Other specified postprocedural states; Z88.5 Allergy status to narcotic agent; Z88.8 Allergy status to other drugs, medicaments and biological substances
CPT/HCPCS: 36415; 74177; 80053; 80307; 81001; 81025; 83690; 83735; 85025; 93005; 96361; 96374; 96375; 99285; G0480; J1170; J1885; J2405; J3010; J3490; J7030; Q9967

== ENCOUNTER 2020-07-03 20:54 | Emergency (ER) | payer SELFPAY ==
[~2020-07-03] VITALS: Ht 160 cm; Wt 55.0 kg
[~2020-07-03 20:54] MED LIST changes: +CYCL10TA2 PO; +PRED-220 PO
[2020-07-03 21:29] LABS: BASO # 0.2 x10^3/uL (0.0-0.2); BASO % 2 % (0-3); EOS # 0.1 x10^3/uL (0.0-0.7); EOS % 1 % (0-3); HEMATOCRIT 42.3 % (36.0-47.0); HEMOGLOBIN 14.5 g/dL (12.0-15.5); LYMPH # 3.6 x10^3/uL (1.0-4.8); LYMPH % 36 % (24-48); MEAN CORPUSCULAR HEMOGLOBIN 33 pg (25-35); MEAN CORPUSCULAR HGB CONC 34 g/dL (31-37); MEAN CORPUSCULAR VOLUME 95 fL (79-100); MONO # 0.7 x10^3/uL (0.0-1.1); MONO % 7 % (0-9); NEUT # 5.6 x10^3/uL (1.8-7.7); NEUT % 55 % (31-73); PLATELET COUNT 199 x10^3/uL (140-400); RED BLOOD COUNT 4.44 x10^6/uL (3.50-5.40); RED CELL DISTRIBUTION WIDTH 13.8 % (11.5-14.5); WHITE BLOOD COUNT 10.3 x10^3/uL (4.0-11.0)
--- NOTE | 2020-07-03 21:30 | PHYS DOC ---
Past Medical History Past Medical History: Asthma, Other Additional Past Medical Histor: emphysema, crohns Past Surgical History: Appendectomy, Other Additional Past Surgical Histo: d&c Smoking Status: Current Every Day Smoker Alcohol Use: None Drug Use: None General Adult EDM: Chief Complaint: CHEST PAIN HPI: HPI: Patient is a 35 year old female with no past medical history presents with the chief complaint of left sided chest shoulder and arm pain. Patient states pain started suddenly. Pain described as sharp. Onset at 1800hrs. It radiates for left chest to shoulder and down arm. No associated chest pain or shortness of breath. Denies any previous similar pain. Review of Systems: Review of Systems: Constitutional: Denies fever or chills. [] Eyes: Denies change in visual acuity. [] HENT: Denies nasal congestion or sore throat. [] Respiratory: Denies cough or shortness of breath. [] Cardiovascular: positive chest pain GI: Denies abdominal pain, nausea, vomiting, bloody stools or diarrhea. [] : Denies dysuria. [] Musculoskeletal: Denies back pain or joint pain. [] Integument: Denies rash. [] Neurologic: Denies headache, focal weakness or sensory changes. [] Endocrine: Denies polyuria or polydipsia. [] Lymphatic: Denies swollen glands. [] Psychiatric: Denies depression or anxiety. [] Heart Score: HEART Score for Chest Pain: HEART Score for Chest Pain Response (Comments) Value History Slighlty/Non-Suspicious 0 ECG Normal 0 Age < 45 0 Risk Factors No Risk Factors 0 Troponin < Normal Limit 0 Total 0 Risk Factors: Risk Factors: DM, Current or recent (<one month) smoker, HTN, HLP, family history of CAD, obesity. Risk Scores: Score 0 - 3: 2.5% MACE over next 6 weeks - Discharge Home Score 4 - 6: 20.3% MACE over next 6 weeks - Admit for Clinical Observation Score 7 - 10: 72.7% MACE over next 6 weeks - Early Invasive Strategies Allergies: Allergies: Allergies Coded Allergies Type Severity Reaction Last Updated Verified codeine Allergy Severe Swelling 10/17/16 Yes doxycycline Allergy Severe Swelling 10/17/16 Yes Physical Exam: PE: Constitutional: Well developed, well nourished, no acute distress, non-toxic appearance. [] HENT: Normocephalic, atraumatic, bilateral external ears normal, oropharynx moist, no oral exudates, nose normal. [] Eyes: PERRLA, EOMI, conjunctiva normal, no discharge. [] Neck: Normal range of motion, no tenderness, supple, no stridor. [] Cardiovascular:Heart rate regular rhythm, no murmur [] Lungs & Thorax: Bilateral breath sounds clear to auscultation [] Abdomen: Bowel sounds normal, soft, no tenderness, no masses, no pulsatile masses. [] Skin: Warm, dry, no erythema, no rash. [] Back: No tenderness, no CVA tenderness. [] Extremities: No tenderness, no cyanosis, no clubbing, ROM intact, no edema. [] Neurologic: Alert and oriented X 3, normal motor function, normal sensory function, no focal deficits noted. [] Psychologic: Affect normal, judgement normal, mood normal. [] EKG: EKG: heart rate 109 sinus tachycardia no stemi time 2104[] Radiology/Procedures: Radiology/Procedures: [] Course & Med Decision Making: Course & Med Decision Making Pertinent Labs and Imaging studies reviewed. (See chart for details) [] Dragon Disclaimer: CivilisedMoney Disclaimer: This electronic medical record was generated, in whole or in part, using a voice recognition dictation system. Departure Departure Impression: Primary Impression: Chest pain Disposition: 01 HOME, SELF-CARE Condition: STABLE Referrals: NO PCP (PCP) Patient Instructions: Chest Pain (Nonspecific) Scripts Tramadol Hcl (ULTRAM) 50 Mg Tablet 1 TAB PO PRN Q6HRS PRN for pain MDD 4 Tablet(s) for 7 Days, #20 TAB 0 Refills Prov: PRACHI BECERRA DO 07/03/20 Justicifation of Admission Dx: Justifications for Admission: Justification of Admission Dx: N/A PRACHI BECERRA DO Jul 03, 2020 21:30
[2020-07-03 21:36] LABS: CALCIUM 9.2 mg/dL (8.5-10.1); CREATININE 0.9 mg/dL (0.6-1.0); GFR 71.3; POTASSIUM 3.8 mmol/L (3.5-5.1)
[2020-07-03 21:42] LABS: ALBUMIN 4.2 g/dL (3.4-5.0); ALBUMIN/GLOBULIN RATIO 1.2 (1.0-1.7); TOTAL BILIRUBIN 0.7 mg/dL (0.2-1.0); TOTAL PROTEIN 7.8 g/dL (6.4-8.2)
[2020-07-03] MEDS ORDERED: KETOROLAC 30 MG/ML VIAL. IVP ONE (22:00)
[2020-07-03] MEDS ORDERED: TRAM-48 PO (22:25)
[2020-07-03 22:39] VITALS: BP 96/52
[2020-07-03] MEDS ORDERED: traMADol 50 MG TABLET PO ONE (23:00)
--- NOTE | 2020-07-03 23:03 | RAD ---
CHEST AP ONLY Clinical Indication: Reason: chest pain / Spl. Instructions: / History: Comparison: AP chest 09/28/2017. Findings: The cardiomediastinal silhouette is normal.. Tiny calcified granuloma left midlung. Lungs are clear. There is no pneumothorax. No pleural effusion is appreciated. No acute bone abnormality. IMPRESSION: No acute cardiopulmonary process. Electronically signed by: Gilberto Rausch MD (07/03/2020 11:01 PM) [facility]
--- NOTE | 2020-07-07 03:32 | EKG ---
[facility] [address] [place] [address] Test Date: 2020-07-03 Test Time: 21:05:35 Pat Name: ARIANNA NOVOA Department: Room: Gender: F [employer] Box: : 1985 Requested By: PRACHI BECERRA Order Number: [id number] Reading MD: Morro Fung Measurements Intervals [place] Rate: 109 P: 90 NM: 136 QRS: 129 QRSD: 92 T: 29 QT: 316 QTc: 427 Interpretive Statements SINUS TACHYCARDIA LEFT ATRIAL ABNORMALITY ABNORMAL RIGHT AXIS DEVIATION Electronically Signed On 07-08-2020 12:48:24 CDT by Morro Fung
== END 2020-07-03 22:39 | disposition home or self-care (01) ==
LOC: ER 20:54
DX: R07.89 Other chest pain (principal); M79.602 Pain in left arm; R00.0 Tachycardia, unspecified; J45.909 Unspecified asthma, uncomplicated; F17.200 Nicotine dependence, unspecified, uncomplicated; Z88.1 Allergy status to other antibiotic agents; Z88.5 Allergy status to narcotic agent
CPT/HCPCS: 36415; 71045; 80053; 84484; 85025; 93005; 96374; 99285; J1885

== ENCOUNTER 2020-08-26 14:43 | Emergency (ER) | payer SELFPAY ==
[~2020-08-26] VITALS: Ht 160 cm; Wt 54.0 kg
[~2020-08-26 14:43] MED LIST changes: +TRAM-48 PO
[2020-08-26 15:51] LABS: BASO # 0.1 x10^3/uL (0.0-0.2); BASO % 1 % (0-3); EOS # 0.2 x10^3/uL (0.0-0.7); EOS % 2 % (0-3); HEMATOCRIT 43.7 % (36.0-47.0); HEMOGLOBIN 14.7 g/dL (12.0-15.5); LYMPH % 34 % (24-48); MEAN CORPUSCULAR HEMOGLOBIN 32 pg (25-35); MEAN CORPUSCULAR HGB CONC 34 g/dL (31-37); MEAN CORPUSCULAR VOLUME 96 fL (79-100); MONO # 0.8 x10^3/uL (0.0-1.1); MONO % 9 % (0-9); NEUT # 4.9 x10^3/uL (1.8-7.7); NEUT % 55 % (31-73); PLATELET COUNT 163 x10^3/uL (140-400); RED BLOOD COUNT 4.53 x10^6/uL (3.50-5.40); RED CELL DISTRIBUTION WIDTH 13.3 % (11.5-14.5); WHITE BLOOD COUNT 8.9 x10^3/uL (4.0-11.0)
[2020-08-26] MEDS ORDERED: ACETAMINOPHEN 500 MG TABLET PO ONE (16:00)
[2020-08-26] MEDS ORDERED: IV NORMAL SALINE 1000ML BAG 1,000 ML IV ONE (16:00)
[2020-08-26] MEDS ORDERED: DEXAMETHASONE SOD PHOS 20 MG/5 ML VIAL. PO ONE (16:00)
[2020-08-26] MEDS ORDERED: DEXAMETHASONE SOD PHOS 20 MG/5 ML VIAL. IV ONE (16:00)
[2020-08-26 16:06] LABS: CALCIUM 8.4 mg/dL (8.5-10.1); CREATININE 0.8 mg/dL (0.6-1.0); GFR 81.6; POTASSIUM 3.9 mmol/L (3.5-5.1)
--- NOTE | 2020-08-26 16:11 | RAD ---
Exam: Chest one view INDICATION: Chest pain TECHNIQUE: Frontal view of the chest Comparisons: 07/03/2020 FINDINGS: The cardiomediastinal silhouette and pulmonary vessels are within normal limits. The lung and pleural spaces are clear. IMPRESSION: No acute cardiopulmonary process. Electronically signed by: Zaire Vanegas MD (08/26/2020 4:09 PM) PATRICIA
--- NOTE | 2020-08-26 16:11 | EKG ---
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
[2020-08-26 16:12] LABS: ALBUMIN 3.5 g/dL (3.4-5.0); MAGNESIUM 2.2 mg/dL (1.8-2.4); TOTAL BILIRUBIN 0.3 mg/dL (0.2-1.0); TOTAL PROTEIN 6.9 g/dL (6.4-8.2)
[2020-08-26 16:22] LABS: INFLUENZA A PATIENT NEGATIVE (NEGATIVE); INFLUENZA B PATIENT NEGATIVE (NEGATIVE)
--- NOTE | 2020-08-26 16:24 | ED.ADGEN ---
Past Medical History Past Medical History: Asthma, Other Additional Past Medical Histor: emphysema, crohns Past Surgical History: Appendectomy, Other Additional Past Surgical Histo: d&c Smoking Status: Current Every Day Smoker Alcohol Use: None Drug Use: None General Adult EDM: Chief Complaint: SHORTNESS OF BREATH HPI: HPI: Patient is a 35 year old female with a history of asthma, who presents emergency department with complaints of fever, cough, shortness of breath, and body aches that began last night. She complains of wheezing and chest tightness. She denies any rash, nausea, vomiting, diarrhea, abdominal pain, sore throat, or known COVID-19 exposure. Patient states she last took anything for her fever early this morning before 6 AM. She states that her albuterol inhaler is so she has not been using it. Patient states that she is not able to taste food today. She currently rates her discomfort 8 out of 10 on the pain scale, she denies any alleviating factors. Review of Systems: Review of Systems: Complete ROS is negative unless otherwise noted in HPI. Current Medications: Current Medications Medications (Trade) Dose Ordered Sig/Evelia Start Time Stop Time Status Last Admin Dose Admin Acetaminophen (Tylenol) 1,000 mg 1X ONCE 08/26/20 16:00 08/26/20 16:01 DC 08/26/20 16:02 1,000 MG Dexamethasone Sodium Phosphate (Decadron) 10 mg 1X ONCE 08/26/20 16:00 08/26/20 16:02 DC 08/26/20 16:02 10 MG Sodium Chloride 1,000 ml @ 1,000 mls/hr 1X ONCE 08/26/20 16:00 08/26/20 16:59 08/26/20 15:55 1,000 MLS/HR Allergies: Allergies: Allergies Coded Allergies Type Severity Reaction Last Updated Verified codeine Allergy Severe Swelling 10/17/16 Yes doxycycline Allergy Severe Swelling 10/17/16 Yes Physical Exam: PE: See Above Constitutional: Well developed, well nourished, no acute distress, ill appearance, appears anxious HENT: Normocephalic, atraumatic, bilateral external ears normal Eyes: PERRLA, EOMI, conjunctiva normal, no discharge. [] Neck: Normal range of motion, no stridor. [] Cardiovascular:Heart rate regular tachycardic rhythm Lungs & Thorax: Inspiratory and expiratory wheezing present, mild respiratory distress, mild intercostal retractions, able to speak full sentences, tachypneic Skin: Warm, dry, no erythema, no rash. [] Extremities: No cyanosis, ROM intact, no edema. [] Neurologic: Alert and oriented X 3, no focal deficits noted. [] Psychologic: Affect normal, judgement normal, mood normal. [] Current Patient Data: Labs: Laboratory Tests Test 08/26/20 15:31 08/26/20 15:39 Influenza Type A Antigen Negative (NEGATIVE) Influenza Type B Antigen Negative (NEGATIVE) White Blood Count 8.9 x10^3/uL (4.0-11.0) Red Blood Count 4.53 x10^6/uL (3.50-5.40) Hemoglobin 14.7 g/dL (12.0-15.5) Hematocrit 43.7 % (36.0-47.0) Mean Corpuscular Volume 96 fL (79-100) Mean Corpuscular Hemoglobin 32 pg (25-35) Mean Corpuscular Hemoglobin Concent 34 g/dL (31-37) Red Cell Distribution Width 13.3 % (11.5-14.5) Platelet Count 163 x10^3/uL (140-400) Neutrophils (%) (Auto) 55 % (31-73) Lymphocytes (%) (Auto) 34 % (24-48) Monocytes (%) (Auto) 9 % (0-9) Eosinophils (%) (Auto) 2 % (0-3) Basophils (%) (Auto) 1 % (0-3) Neutrophils # (Auto) 4.9 x10^3/uL (1.8-7.7) Lymphocytes # (Auto) 3.0 x10^3/uL (1.0-4.8) Monocytes # (Auto) 0.8 x10^3/uL (0.0-1.1) Eosinophils # (Auto) 0.2 x10^3/uL (0.0-0.7) Basophils # (Auto) 0.1 x10^3/uL (0.0-0.2) D-Dimer (Yomaira) 0.36 ug/mlFEU (0.00-0.50) Sodium Level 138 mmol/L (136-145) Potassium Level 3.9 mmol/L (3.5-5.1) Chloride Level 104 mmol/L (98-107) Carbon Dioxide Level 24 mmol/L (21-32) Anion Gap 10 (6-14) Blood Urea Nitrogen 10 mg/dL (7-20) Creatinine 0.8 mg/dL (0.6-1.0) Estimated GFR (Cockcroft-Gault) 81.6 BUN/Creatinine Ratio 13 (6-20) Glucose Level 99 mg/dL (70-99) Calcium Level 8.4 mg/dL (8.5-10.1) L Magnesium Level 2.2 mg/dL (1.8-2.4) Total Bilirubin 0.3 mg/dL (0.2-1.0) Aspartate Amino Transferase (AST) 6 U/L (15-37) L Alanine Aminotransferase (ALT) 16 U/L (14-59) Alkaline Phosphatase 88 U/L (46-116) Total Protein 6.9 g/dL (6.4-8.2) Albumin 3.5 g/dL (3.4-5.0) Albumin/Globulin Ratio 1.0 (1.0-1.7) Laboratory Tests 08/26/20 15:39 Laboratory Tests 08/26/20 15:39 Vital Signs: Vital Signs Date Time Temp Pulse Resp B/P (MAP) Pulse Ox O2 Delivery O2 Flow Rate FiO2 08/26/20 15:48 99.1 120 24 129/82 (98) 98 Room Air 99.1 EKG: EKG: [] Heart Score: Risk Factors: Risk Factors: DM, Current or recent (<one month) smoker, HTN, HLP, family histo ry of CAD, obesity. Risk Scores: Score 0 - 3: 2.5% MACE over next 6 weeks - Discharge Home Score 4 - 6: 20.3% MACE over next 6 weeks - Admit for Clinical Observation Score 7 - 10: 72.7% MACE over next 6 weeks - Early Invasive Strategies Radiology/Procedures: Radiology/Procedures: PROCEDURE: CHEST AP ONLY Exam: Chest one view INDICATION: Chest pain TECHNIQUE: Frontal view of the chest Comparisons: 07/03/2020 FINDINGS: The cardiomediastinal silhouette and pulmonary vessels are within normal limits. The lung and pleural spaces are clear. IMPRESSION: No acute cardiopulmonary process. [] Course & Med Decision Making: Course & Med Decision Making Pertinent Labs and Imaging studies reviewed. (See chart for details) Patient is a 35-year-old female who presented emergency room with complaints of shortness of breath, body aches, and fever for 2 days. Her chest x-ray is unremarkable. Rapid influenza testing is negative. CBC is unremarkable; D-dimer is not elevated; CMP is unremarkable. COVID-19 test is pending.. Patient was given 10 mg of Decadron IV and 1 L of normal saline. Will prescribe patient albuterol inhaler and a Medrol Dosepak to start taking tomorrow. Provided the patient with quarantine instructions and encouraged her to follow them. Patient verbalized an understanding of home care, medications, follow-up, and return to ED instructions and was in agreement with the plan of care. [] Lesia Disclaimer: Lesia Disclaimer: This electronic medical record was generated, in whole or in part, using a voice recognition dictation system. Departure Departure Impression: Primary Impression: Asthma exacerbation, mild Additional Impression: Person under investigation for COVID-19 Disposition: 01 DC HOME SELF CARE/HOMELESS Condition: STABLE Referrals: NO PCP (PCP) Patient Instructions: Asthma Attacks, Prevention, Asthma, Adult, [id number] Additional Instructions: Fill prescription(s) and use as directed. Alternate Tylenol or ibuprofen as needed for pain/fever. Increase clear fluids. Avoid airway triggers such as smoke, fragrance, dust, and pollen. Follow-up with your primary care doctor if symptoms persist, return to the ER if symptoms worsen. Follow the following COVID-19 quarantine instructions. You have been tested for or diagnosed with COVID-19. It is an infection caused by a new type of coronavirus. COVID-19 will cause cold-like or mild flu symptoms in most. It can cause more severe symptoms like problems breathing in some. There is no treatment for COVID-19. The body will clear the infection over time. Self-care will help to ease discomfort. Steps to Take: Self-Care Rest as needed. Healthy habits may help you feel better. Steps include: Choose healthy foods including fruits and vegetables. Drink water throughout the day. Get plenty of sleep each night. If you smoke, try to quit. It may ease breathing. Avoid alcohol. Keep Others Healthy The virus can spread to others. Droplets are released every time you sneeze or cough. The droplets can get into the mouth, nose, or eyes of people near you and lead to infection. To lower the chances of spreading COVID-19 to others: Stay at home until your doctor has said it is safe to leave. If you tested positive this will mean staying isolated until both of the following are true: At least 7 days have passed since the start of illness. You are free of fever for at least 72 hours without the use of medicine. During this time: - Avoid public areas, events, or transportation. Do not return to work or school until your doctor has said it is safe to do so. - Call ahead if you need to go to a medical center. Let them know you may have COVID-19. It will help them guide you where to go. They may also ask you to wear a facemask when you come to the office. - If you call for emergency medical services, let them know you may have COVID-19. While at home: - Try to avoid close contact with others. Stay about 6 feet away. - If possible, spend most of your time in a separate room from others. - Use a face mask if you will be in close contact with others such as sharing a room or vehicle. - Have someone wipe down common surfaces in the home. Use household powerhouse operator every day on areas like doorknobs, counters, or sinks. - Cough or sneeze into a tissue. Throw the tissue away right after use. If a tissue is not available, cough or sneeze into your elbow. - Wash your hands often. Wash them after sneezing or coughing. Use soap and water and wash for at least 20 seconds. Alcohol based hand railroad car cleaner can be used if soap and wate r is not available. - Do not prepare food for others. Avoid sharing personal items like forks, spo ons, or toothbrushes. - Avoid close contact with pets while you are sick. There is no evidence of the virus passing to pets. This is a safety step until more is known about this virus. Isolation can be frustrating. Social interaction can help. Keep in touch with friends and family through phone and tech options. You can still interact with others in your home, just keep a safe distance of about 6 feet. Follow-up: Your doctors office will check in with you to see if there are any changes in your health. You may be asked to keep track of symptoms to share with them. They will also let you know when you are clear to be in public again. Problems to Look Out For: Contact your doctor if your recovery is not going as you expect. Get emergency care if you have problems such as: - Trouble breathing - Nonstop chest pain or pressure - Changes in awareness, confusion, or problems waking - Lips or face have bluish color - Worsening of symptoms If you think you have an emergency, call for emergency medical services right away. As taken from [facility] [address] [place] [address] [facility] [address] [place] [address] [facility] [address] [facility] [place] [address] [facility] [address] [place] [address] [facility] [address] [place] [address] [facility] [address] [place] [address] [facility] [address] [place] [address] [facility] [address] [place] [address] [facility] [address] [place] [address] [facility] [address] [place] [address] Scripts Methylprednisolone (MEDROL) 4 Mg Tab.ds.pk 1 PKG PO UD for 6 Days, #1 PKG 0 Refills start taking on 08/27/20 Prov: RUIZ CRUZ BLADE CHANGER 08/26/20 Albuterol Sulfate (VENTOLIN HFA INHALER) 18 Gm Hfa.aer.ad 2 PUFF INH Q4HRS PRN for WHEEZING for 30 Days, #1 INHALER 2 Refills Prov: RUIZ CRUZ BLADE CHANGER 08/26/20 Problem Qualifiers RUIZ CRUZ BLADE CHANGER Aug 26, 2020 16:24
[2020-08-26] MEDS ORDERED: VENTOLIN HFA18 GM INH (17:05)
[2020-08-26] MEDS ORDERED: METH4TAB2 PO (17:05)
[2020-08-26 17:29] VITALS: BP 94/45
--- NOTE | 2020-08-28 12:12 | NUR ---
IP: Attempted to call COVID results. No answer. No means to leave a voicemail.
== END 2020-08-26 17:49 | disposition home or self-care (01) ==
LOC: ER 14:43
DX: J45.901 Unspecified asthma with (acute) exacerbation (principal); Z20.828 Contact with and (suspected) exposure to other viral communicable diseases; R50.9 Fever, unspecified; R06.02 Shortness of breath; F17.200 Nicotine dependence, unspecified, uncomplicated; Z90.89 Acquired absence of other organs; Z98.890 Other specified postprocedural states; Z88.5 Allergy status to narcotic agent; Z88.1 Allergy status to other antibiotic agents
CPT/HCPCS: 36415; 71045; 80053; 83735; 85025; 85379; 87804; 93005; 96361; 96374; 99285; J1100; J7030; U0003; C9803

== ENCOUNTER 2021-03-19 09:41 | Emergency (ER) | payer SELFPAY ==
[~2021-03-19] VITALS: Ht 162.6 cm; Wt 55.4 kg
[~2021-03-19 09:41] MED LIST changes: +METH4TAB2 PO; +VENTOLIN HFA18 GM INH
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
[2021-03-19] MEDS ORDERED: HYDROcodone/APAP 5/325MG 1 TAB TABLET PO ONE (11:00)
--- NOTE | 2021-03-19 11:23 | RAD ---
Right hip 2 views with one view pelvis. HISTORY: Fall, right hip pain Single view was taken of the pelvis. There is no acute pelvic fracture. There is an intrauterine cont raceptive device in the pelvis. A pubic ramus fracture is not identified. Left hip appears unremarkab le. AP and lateral views were taken of the right hip. There is no fracture or acute osseous abnormality. IMPRESSION: 1. No pelvic fracture noted. 2. No right hip fracture noted. Electronically signed by: Adam Pettit MD (03/19/2021 11:21 AM) [id number]
[2021-03-19] MEDS ORDERED: TRAM50TA PO (12:05)
[2021-03-19 12:36] VITALS: BP 113/57
== END 2021-03-19 12:36 | disposition home or self-care (01) ==
LOC: ER 09:41
DX: S70.01XA Contusion of right hip, initial encounter (principal); J45.909 Unspecified asthma, uncomplicated; F17.200 Nicotine dependence, unspecified, uncomplicated; Z88.5 Allergy status to narcotic agent; Z88.1 Allergy status to other antibiotic agents; W18.39XA Other fall on same level, initial encounter; Y93.89 Activity, other specified; Y92.89 Other specified places as the place of occurrence of the external cause; Y99.8 Other external cause status
CPT/HCPCS: 73502; 99284

== ENCOUNTER 2021-06-10 08:39 | Emergency (ER) | payer SELFPAY ==
[~2021-06-10] VITALS: Ht 160 cm; Wt 55.7 kg
[~2021-06-10 08:39] MED LIST changes: +TRAM50TA PO
--- NOTE | 2021-06-10 09:06 | PHYS DOC ---
Past Medical History Past Medical History: Asthma, CVA, Other Additional Past Medical Histor: emphysema,crohns,CVA R/T COVID-19 Past Surgical History: Appendectomy, Other Additional Past Surgical Histo: d&c Smoking Status: Current Every Day Smoker Alcohol Use: None Drug Use: None General Adult EDM: Chief Complaint: ANKLE PROBLEM HPI: HPI: 36-year-old female presents to the emergency department complaining of right ankle pain after a skydiving incident yesterday. She reports that she was skydiving and upon landing, she inverted her right ankle, causing pain. She reports the pain and swelling have gradually increased over the course of the last 24 hours. She reports being able to walk on it after the incident but now is unable to walk on it because of the pain. The patient denies nausea, vomiting, fever, chills, chest pain, shortness of breath, abdominal pain, urinary symptoms, cough or any other complaints. Review of Systems: Review of Systems: Review of systems otherwise negative except for what was mentioned in the HPI Heart Score: C/O Chest Pain: No Allergies: Allergies: Allergies Coded Allergies Type Severity Reaction Last Updated Verified codeine Allergy Severe Swelling 10/17/16 Yes doxycycline Allergy Severe Swelling 10/17/16 Yes Physical Exam: PE: Constitutional: No acute distress, non-toxic appearance. Appears anxious HENT: Atraumatic, normocephalic. Eyes: Conjunctiva normal, normal tracking. Neck: Normal range of motion, supple. Cardiovascular: Heart rate regular rhythm. 2+ dorsalis pedis pulses, capillary refill less than 2 seconds bilateral lower extremities Lungs & Thorax: No respiratory distress, symmetrical expansion. Skin: Warm, dry, no overlying skin changes over the lower extremities.. Extremities: Soft tissue swelling is appreciated to the anterior right foot and ankle area. tenderness appreciated to the right lateral malleolus. [No tendernes s to the feet, leg, bilaterally]. Appropriate range of motion, limited by pain Neurologic: Alert and oriented X 3. Normal motor function of the lower extremities bilaterally. Normal sensory function of the lower extremities. No focal deficits noted. GCS 15. Current Patient Data: Vital Signs: Vital Signs Date Time Temp Pulse Resp B/P (MAP) Pulse Ox O2 Delivery O2 Flow Rate FiO2 06/10/21 09:45 99 20 159/62 (94) 97 Room Air 06/10/21 08:45 98.2 110 18 145/63 75 100 Room Air 98.2 Radiology/Procedures: Radiology/Procedures: XR EXAM OF ANKLE_RIGHT 3VIEWS DATE: 06/10/2021 9:10 AM INDICATION: Reason: ankle pain, bruising, and swelling post injury yesterday / Spl. Instructions: / History: COMPARISON: None. FINDINGS: Bones: There is no evidence of acute fracture or dislocation. Joints: The ankle mortise is congruent. No widening of the distal tibiofibular syndesmosis. Miscellaneous: None. IMPRESSION: No evidence of acute fracture. Electronically signed by: Angelito James MD (06/10/2021 9:32 AM) Course & Med Decision Making: Course & Med Decision Making X-ray negative patient diagnosed with ankle sprain, will have patient take NSAIDs at home and follow-up with primary care doctor. Patient appeared to be quite anxious regarding her diagnosis, likely explaining her tachycardia Departure Departure Impression: Primary Impression: Right ankle sprain Disposition: 01 HOME / SELF CARE / HOMELESS Condition: STABLE Referrals: NO PCP (PCP) Patient Instructions: Ankle Sprain, [id number] Additional Instructions: You were seen in the Emergency Department for right ankle sprain. - Your x-rays did not show any broken bones. Your injury and symptoms are likely result of a sprain or strain. You should try and rest your right ankle for the next week and keep it elevated to reduce swelling. You can also apply ice or warm compresses to help reduce swelling. Apply ice for 10-15 minutes at a time, 3 or 4 times each day. Do not apply ice directly to the skin. - Over the counter ibuprofen or Tylenol are good medications to help reduce swelling that causes pain. - If your symptoms continue after 2-3 weeks your injury may be more significant and you should follow up with an orthopedic surgeon. Please follow up with your primary doctor. Please return to the ED if new or worrisome symptoms arise. You were seen in the emergency department for a musculoskeletal problem that will likely get better over time. You may utilize something called the "RICE" protocol (Rest, Ice, Compresses, Elevation) to help alleviate your pain: ? Hold off on doing intense exercise that may make the pain worse. Sometimes gentle stretching can provide relief, but be careful to avoid further injury. It is important to perform gentle range of motion exercises to prevent stiff joints and chronic pain. ? Use ice packs over the affected area to help decrease your pain. Ice can work as a numbing agent over your painful area. For the first 24 hours, apply ice 2-4 times per day for a maximum 15-20 minutes each time. Ice should be in a plastic bag. ? You may use warm compresses to help improve blood flow and decrease swell ing. Alternating with ice packs and warm compresses works well. ? You may elevate the affected area to help improve drainage and reduce swelling, which will also help your pain. FITO ARANGO DO Jun 10, 2021 09:06
[2021-06-10] MEDS ORDERED: oxyCODONE IR 5 MG TABLET PO ONE (09:15)
--- NOTE | 2021-06-10 09:35 | RAD ---
XR EXAM OF ANKLE_RIGHT 3VIEWS DATE: 06/10/2021 9:10 AM INDICATION: Reason: ankle pain, bruising, and swelling post injury yesterday / Spl. Instructions: / History: COMPARISON: None. FINDINGS: Bones: There is no evidence of acute fracture or dislocation. Joints: The ankle mortise is congruent. No widening of the distal tibiofibular syndesmosis. Miscellaneous: None. IMPRESSION: No evidence of acute fracture. Electronically signed by: Angelito James MD (06/10/2021 9:32 AM) [id number]
[2021-06-10 09:45] VITALS: BP 159/62
== END 2021-06-10 09:45 | disposition home or self-care (01) ==
LOC: ER 08:39
DX: S93.401A Sprain of unspecified ligament of right ankle, initial encounter (principal); J45.909 Unspecified asthma, uncomplicated; F17.200 Nicotine dependence, unspecified, uncomplicated; Z86.73 Personal history of transient ischemic attack (TIA), and cerebral infarction without residual deficits; Z88.5 Allergy status to narcotic agent; Z88.1 Allergy status to other antibiotic agents; X50.9XXA Other and unspecified overexertion or strenuous movements or postures, initial encounter; Y93.12 Activity, springboard and platform diving; Y92.89 Other specified places as the place of occurrence of the external cause; Y99.8 Other external cause status
CPT/HCPCS: 73610; 99283

== ENCOUNTER 2021-07-10 20:50 | Emergency (ER) | payer SELFPAY ==
[~2021-07-10] VITALS: Ht 162.6 cm; Wt 56.3 kg
[2021-07-10] MEDS ORDERED: BENZONATATE 100 MG CAPSULE. PO ONE (21:30)
[2021-07-10] MEDS ORDERED: methylPREDNISolone SOD SUCC PF 125 MG/2 ML VIAL. IV ONE (21:30)
[2021-07-10] MEDS ORDERED: IPRATRPIUM/ALBUTEROL 0.5/2.5MG 3 ML NEBU. NEB ONE (21:30)
[2021-07-10] MEDS ORDERED: IPRATROPIUM/ALBUTEROL 20/100mcg/INH INHALER. INH SCH (21:35)
[2021-07-10 21:54] LABS: BASO # 0.1 x10^3/uL (0.0-0.2); BASO % 1 % (0-3); EOS # 0.2 x10^3/uL (0.0-0.7); EOS % 2 % (0-3); HEMATOCRIT 44.5 % (36.0-47.0); HEMOGLOBIN 15.1 g/dL (12.0-15.5); LYMPH # 3.2 x10^3/uL (1.0-4.8); LYMPH % 32 % (24-48); MEAN CORPUSCULAR HEMOGLOBIN 33 pg (25-35); MEAN CORPUSCULAR HGB CONC 34 g/dL (31-37); MEAN CORPUSCULAR VOLUME 96 fL (79-100); MONO # 0.9 x10^3/uL (0.0-1.1); MONO % 9 % (0-9); NEUT # 5.5 x10^3/uL (1.8-7.7); NEUT % 56 % (31-73); PLATELET COUNT 228 x10^3/uL (140-400); RED BLOOD COUNT 4.63 x10^6/uL (3.50-5.40); WHITE BLOOD COUNT 9.9 x10^3/uL (4.0-11.0)
[2021-07-10 22:14] LABS: CALCIUM 8.7 mg/dL (8.5-10.1); CREATININE 0.8 mg/dL (0.6-1.0); GFR 81.2; POTASSIUM 4.4 mmol/L (3.5-5.1)
--- NOTE | 2021-07-10 22:19 | RAD ---
EXAMINATION: Chest radiograph. VIEWS: Single view COMPARISON: None INDICATION:36 years, Female, cough and shortness of breath. FINDINGS: Normal cardiomediastinal silhouette. Calcified granulomas in the left lung. No focal consolidation. N o pleural effusion or pneumothorax. No acute osseous process. IMPRESSION: No acute cardiopulmonary process. Electronically signed by: Celena Sales MD (07/10/2021 10:16 PM) [facility]
[2021-07-10 22:20] LABS: ALBUMIN 3.5 g/dL (3.4-5.0); ALBUMIN/GLOBULIN RATIO 0.9 (1.0-1.7); TOTAL BILIRUBIN 0.4 mg/dL (0.2-1.0); TOTAL PROTEIN 7.4 g/dL (6.4-8.2)
[2021-07-10 22:21] LABS: INFLUENZA A PATIENT NEGATIVE (NEGATIVE); INFLUENZA B PATIENT NEGATIVE (NEGATIVE)
[2021-07-10 22:32] VITALS: BP 124/48
[2021-07-10] MEDS ORDERED: CITA20TA6 PO (22:39)
[2021-07-10] MEDS ORDERED: CLON0.5T PO (22:39)
[2021-07-10] MEDS ORDERED: OLAN5TAB3 PO (22:40)
[2021-07-10] MEDS ORDERED: AZIT250T6 PO (22:49)
[2021-07-10] MEDS ORDERED: BENZ100C PO (22:49)
--- NOTE | 2021-07-10 22:49 | PHYS DOC ---
Past Medical History Past Medical History: Asthma, CVA, Other Additional Past Medical Histor: emphysema,crohns,CVA R/T COVID-19 Past Surgical History: Appendectomy, Other Additional Past Surgical Histo: d&c Smoking Status: Current Every Day Smoker Alcohol Use: None Drug Use: None General Adult EDM: Chief Complaint: MULTIPLE COMPLAINTS HPI: HPI: Patient is a 36 year old female presents emergency department complaining of breath and cough for the past 2 weeks. Patient denies chest pain, reports a small amount of productive sputum. States she has been a cigarette smoker for years however has not been able to smoke during her illness for the past 2 weeks. Patient denies alcohol or illicit drug use. Patient denies fever or chills, denies other physical concerns or physical complaints. Reports last menstrual cycle ended yesterday. Reports taking Celexa only at home. Reports allergy to codeine and doxycycline Review of Systems: Review of Systems: 14 body systems of review of systems have been reviewed. See HPI for pertinent positives and negative responses, otherwise all other systems are negative, non pertinent or noncontributory. Constitutional: Negative except as outlined in HPI above. Skin: Negative except as outlined in HPI above. Eyes: Negative except as outlined in HPI above. HENT: Negative except as outlined in HPI above. Respiratory: Negative except as outlined in HPI above. Cardiovascular: Negative except as outlined in HPI above. GI: Negative except as outlined in HPI above. : Negative except as outlined in HPI above. Musculoskeletal: Negative except as outlined in HPI above. Integument: Negative except as outlined in HPI above. Neurologic: Negative except as outlined in HPI above. Endocrine: Negative except as outlined in HPI above. Lymphatic: Negative except as outlined in HPI above. Psychiatric: Negative except as outlined in HPI above. Heart Score: C/O Chest Pain: No Risk Factors: Risk Factors: DM, Current or recent (<one month) smoker, HTN, HLP, family history of CAD, obesity. Risk Scores: Score 0 - 3: 2.5% MACE over next 6 weeks - Discharge Home Score 4 - 6: 20.3% MACE over next 6 weeks - Admit for Clinical Observation Score 7 - 10: 72.7% MACE over next 6 weeks - Early Invasive Strategies Current Medications: Current Medications Medications (Trade) Dose Ordered Sig/Evelia Start Time Stop Time Status Last Admin Dose Admin Albuterol/ Ipratropium (Combivent Respimat 20-100 Mcg) 1 puff RTQID 07/10/21 21:35 Cancel Albuterol/ Ipratropium (Duoneb) 3 ml 1X ONCE 07/10/21 21:30 07/10/21 21:51 DC 07/10/21 22:05 3 ML Benzonatate (Tessalon Perle) 100 mg 1X ONCE 07/10/21 21:30 07/10/21 21:36 DC 07/10/21 22:00 100 MG Methylprednisolone Sodium Succinate (SOLU-Medrol 125MG VIAL) 125 mg 1X ONCE 07/10/21 21:30 07/10/21 21:36 DC 07/10/21 22:00 125 MG Allergies: Allergies: Allergies Coded Allergies Type Severity Reaction Last Updated Verified codeine Allergy Severe Swelling 10/17/16 Yes doxycycline Allergy Severe Swelling 10/17/16 Yes Physical Exam: PE: Constitutional: Well developed, well nourished, no acute distress, non-toxic appearance. 36-year-old female coughing during examination otherwise in no apparent distress. HENT: Normocephalic, atraumatic. Eyes: Conjunctiva normal, no discharge. Neck: Normal range of motion, no stridor. Cardiovascular: No cyanosis appreciated, distal cap refill less than 2 seconds. Regular rate and rhythm, heart sounds S1-S2 consultation. Lungs & Thorax: Patient is in no respiratory distress, no audible adventitious lung sounds appreciated. Lung sounds clear all lung welch consultation. Abdomen: Nontender, no abnormalities noted. Skin: Warm, dry, no erythema, no rash. Back: No tenderness, no deformities. Extremities: No tenderness, no cyanosis, no clubbing, ROM intact, no edema. Neurologic: Alert and oriented X 3, normal motor function, normal sensory function, no focal deficits noted. Psychologic: Affect normal, judgement normal, mood normal. Current Patient Data: Labs: Laboratory Tests Test 07/10/21 21:44 07/10/21 21:50 White Blood Count 9.9 x10^3/uL (4.0-11.0) Red Blood Count 4.63 x10^6/uL (3.50-5.40) Hemoglobin 15.1 g/dL (12.0-15.5) Hematocrit 44.5 % (36.0-47.0) Mean Corpuscular Volume 96 fL (79-100) Mean Corpuscular Hemoglobin 33 pg (25-35) Mean Corpuscular Hemoglobin Concent 34 g/dL (31-37) Red Cell Distribution Width 13.0 % (11.5-14.5) Platelet Count 228 x10^3/uL (140-400) Neutrophils (%) (Auto) 56 % (31-73) Lymphocytes (%) (Auto) 32 % (24-48) Monocytes (%) (Auto) 9 % (0-9) Eosinophils (%) (Auto) 2 % (0-3) Basophils (%) (Auto) 1 % (0-3) Neutrophils # (Auto) 5.5 x10^3/uL (1.8-7.7) Lymphocytes # (Auto) 3.2 x10^3/uL (1.0-4.8) Monocytes # (Auto) 0.9 x10^3/uL (0.0-1.1) Eosinophils # (Auto) 0.2 x10^3/uL (0.0-0.7) Basophils # (Auto) 0.1 x10^3/uL (0.0-0.2) Influenza Type A Antigen Negative (NEGATIVE) Influenza Type B Antigen Negative (NEGATIVE) SARS-CoV-2 Antigen (Rapid) Negative (NEGATIVE) Laboratory Tests 07/10/21 21:44 Vital Signs: Vital Signs Date Time Temp Pulse Resp B/P (MAP) Pulse Ox O2 Delivery O2 Flow Rate FiO2 07/10/21 22:09 97 Room Air EKG: EKG: [] Radiology/Procedures: Radiology/Procedures: PATIENT: ARIANNA NOVOA ACCOUNT: [id number] : 1985 LOCATION: ER AGE: 36 SEX: F EXAM STATUS: REG ER ORD. PHYSICIAN: TATIANA MORENO APRN REASON: Cough shortness of breath PROCEDURE: CHEST AP ONLY EXAMINATION: Chest radiograph. VIEWS: Single view COMPARISON: None INDICATION:36 years, Female, cough and shortness of breath. FINDINGS: Normal cardiomediastinal silhouette. Calcified granulomas in the left lung. No focal consolidation. No pleural effusion or pneumothorax. No acute osseous process. IMPRESSION: No acute cardiopulmonary process. Electronically signed by: Celena Sales MD (07/10/2021 10:16 PM) [facility] Course & Med Decision Making: Course & Med Decision Making Pertinent Labs and Imaging studies reviewed. (See chart for details) 36-year-old female, vital signs reviewed, presents to the emergency department complaining of cough for the last 2 weeks. Physical examination consistent with viral bronchitis versus other pulmonary process, will order strep screen, flu, Covid testing, CBC, CMP. Will give Tessalon Perle for active coughing, patient is a long history of cigarette smoking will order DuoNeb treatment. It was noted triage pulse rate 148 however after DuoNeb treatment, cough medicine treatment, and reevaluation of patient, heart rate remains in the upper 80s and lower 90s, the patient is not hypoxic. Patient reports feeling better after breathing treatment, no changes in lung sounds, remain clear to auscultate all lung welch. Chest x-ray nonconcerning for acute process, related to patient's cigarette smoking history, symptoms lasting longer than 2 weeks, will prophylactically treat with Z-Andrew, prescription for Tessalon Perle, discussed findings with patient, discussed increase fluids, uazr-[id number] cough and cold products, patient is amenable to ED discharge planning. Discussed with the patient all findings and diagnostic testing as well as the need to follow-up with their primary care provider for further evaluation and treatment or return to the ED if any new or worsening symptoms. Strict return precautions were also discussed at length, the patient voiced understanding and agreement with the discharge planning. The patient was nontoxic in appearance, in no apparent distress, and hemodynamically stable at the time of disposition. Dragon Disclaimer: Dragon Disclaimer: This electronic medical record was generated, in whole or in part, using a voice recognition dictation system. Departure Departure Impression: Primary Impression: Cough Disposition: 01 HOME / SELF CARE / HOMELESS Condition: GOOD Referrals: NO PCP (PCP) Patient Instructions: Bronchitis Additional Instructions: You were seen today in the emergency department for cough lasting longer 2 weeks, your chest x-ray did not show any concerning signs of pneumonia, your rapid Covid test, flu test, strep test were all negative. As we discussed, please use [id number]-bbbbwyo cough and cold medications, you may use Chloraseptic spray, I recommend the red-colored when I keep it in the fridge rater to help with throat discomfort, [id number] Children's Motrin liquid helps tremendously with throat discomfort during bronchitis recovery, because of your history of cigarette smoking I am starting you on a Z-Andrew antibiotic medication, please take as directed until complete, please follow-up with your primary care physician soon for ongoing symptoms. Thank you for visiting our Emergency Department. It was a pleasure taking care of you today in the emergency department and we appreciate you trusting us with your care. If any additional problems come up don't hesitate to return to visit us. Please follow up with your primary care provider so they can plan additional care if needed and know about the problem that you had. If symptoms worsen come back to the Emergency Department. Any concerning symptoms that start such as chest pain, shortness of air, weakness or numbness on one side of the body, running high fevers or any other concerning symptoms return to the ER. EMERGENCY DEPARTMENT GENERAL DISCHARGE INSTRUCTIONS Thank you for coming to [facility] Emergency Department (ED) today and trusting us with you care. We trust that you had a positive experience in our Emergency Department. If you wish to speak to the department management, you may call the Director at [phone]. YOUR FOLLOW UP INSTRUCTIONS ARE FOLLOWS: 1. Do you have a private Doctor? If you do not have a private doctor, please ask for a resource list of physicians or clinics that may be able to assist you with follow up care. 2. The Emergency Physicain has interpreted your x-rays. The X-Ray specialist will also review them. If there is a change in the findings, you will be notified in 48 h ours when at all possible. 3. A lab test or culture has been done, your results will be reviewed and you will be notified if you need a change in treatment. ADDITIONAL INSTRUCTIONS AND INFORMATION: 1. Your care today has been supervised by a physician who is specially trained in emergency care. Many problems require more than one evaluation for a complete diagnosis and treatment. We recommend that you schedule your follow up appointment as recommended to ensure complete treatment of you illness or injury. If you are unable to obtain follow up care and continue to have a problem, or if your condition worsens, we recommend that you return to the ED. 2. We are not able to safely determine your condition over the phone nor are we able to give sound medical advice over the phone. For these safety reasons, if you call for medical advice we will ask you to come to the ED for further evaluation. 3. If you have any questions regarding these discharge instructions please call the ED at [phone]. SAFETY INFORMATION: In the interest of safety, wellness, and injury prevention; we encourage you to wear your sealbelt, if you smoke; quite smoking, and we encourage family to use a protective helmet for bicycling and other sporting events that present an increased risk for head injury. IF YOUR SYMPTOMS WORSEN OR NEW SYMPTOMS DEVELOP, OR YOU HAVE CONCERNS ABOUT YOUR CONDITION; OR IF YOUR CONDITION WORSENS WHILE YOU ARE WAITING FOR YOUR FOLLOW UP APPOINTMENT; EITHER CONTACT YOUR PRIMARY CARE DOCTOR, THE PHYSICIAN WHOSE NAME AND NUMBER YOU WERE GIVEN, OR RETURN TO THE ED IMMEDIATELY. Scripts Azithromycin (AZITHROMYCIN TABLET) 250 Mg Tablet 1 PKG PO UD for cough for 5 Days, #6 TAB 0 Refills 2 the first day followed by 1 for days 2-5 Prov: TATIANA MORENO APRN 07/10/21 Benzonatate (TESSALON PERLE) 100 Mg Capsule 1 CAP PO TID for cough, #30 CAP 0 Refills Prov: TATIANA MORENO APRN 07/10/21 TATIANA MORENO APRN Jul 10, 2021 22:49
== END 2021-07-10 23:07 | disposition home or self-care (01) ==
LOC: ER 20:50
DX: R05.9 Cough, unspecified (principal); Z20.822 Contact with and (suspected) exposure to COVID-19; R06.02 Shortness of breath; J45.909 Unspecified asthma, uncomplicated; F17.200 Nicotine dependence, unspecified, uncomplicated; Z86.73 Personal history of transient ischemic attack (TIA), and cerebral infarction without residual deficits; Z88.1 Allergy status to other antibiotic agents; Z88.5 Allergy status to narcotic agent
CPT/HCPCS: 36415; 71045; 80053; 85025; 87070; 87426; 87804; 87880; 94640; 96374; 99285; J2930; U0003; U0005

== ENCOUNTER 2021-12-25 19:58 | Emergency (ER) | payer SELFPAY ==
[~2021-12-25] VITALS: Ht 162.6 cm; Wt 61.4 kg
[~2021-12-25 19:58] MED LIST changes: +AZIT250T6 PO; +BENZ100C PO; +CITA20TA6 PO; +CLON0.5T PO; +CYCL10TA19 PO; -CYCL10TA2 PO; +OLAN5TAB3 PO
[2021-12-25] MEDS ORDERED: NAPROXEN 500 MG TABLET PO STA (20:18)
[2021-12-25] MEDS ORDERED: CYCLOBENZAPRINE 10 MG TABLET. PO ONE (20:30)
[2021-12-25] MEDS ORDERED: HYDROcodone/APAP 5/325MG 1 TAB TABLET PO ONE (20:30)
--- NOTE | 2021-12-25 20:42 | PHYS DOC ---
Past Medical History Past Medical History: Asthma, CVA, Other Additional Past Medical Histor: emphysema,crohns,CVA R/T COVID-19 Past Surgical History: No Surgical History Additional Past Surgical Histo: d&c Smoking Status: Current Every Day Smoker Alcohol Use: None Drug Use: None General Adult EDM: Chief Complaint: LOWEREXTREMITY INJURY HPI: HPI: Patient is a 36 year old female who presents to the ED today complaining of a sharp constant right low back pain radiating to the right hip, symptoms began on after falling. Patient states she was skating with her kids when she fell landing on her buttocks. Patient denies any loss of consciousness. Describes the pain as sharp and constant worse on weightbearing though she states she is able to ambulate a little. She states she was seen by the chiropractor on Monday for an adjustment and they recommended she comes to the ED to be evaluated. Denies hitting her head on the ground when she fell. Denies any loss of bowel/bladder function. Denies any numbness or tingling to bilateral lower extremities. Review of Systems: Review of Systems: Constitutional: Denies fever or chills. [] Eyes: Denies change in visual acuity. [] HENT: Denies nasal congestion or sore throat. [] Respiratory: Denies cough or shortness of breath. [] Cardiovascular: Denies chest pain or edema. [] GI: Denies abdominal pain, nausea, vomiting, bloody stools or diarrhea. [] : Denies dysuria. [] Musculoskeletal: Reports low back pain radiating to the right hip Integument: Denies rash. [] Neurologic: Denies headache, focal weakness or sensory changes. [] Psychiatric: Denies depression or anxiety. [] Heart Score: C/O Chest Pain: N/A Risk Factors: Risk Factors: DM, Current or recent (<one month) smoker, HTN, HLP, family history of CAD, obesity. Risk Scores: Score 0 - 3: 2.5% MACE over next 6 weeks - Discharge Home Score 4 - 6: 20.3% MACE over next 6 weeks - Admit for Clinical Observation Score 7 - 10: 72.7% MACE over next 6 weeks - Early Invasive Strategies Current Medications: Current Medications Medications (Trade) Dose Ordered Sig/Evelia Start Time Stop Time Status Last Admin Dose Admin Acetaminophen/ Hydrocodone Bitart (Lortab 5/325) 2 tab 1X ONCE 12/25/21 20:30 12/25/21 20:31 DC 12/25/21 20:27 2 TAB Cyclobenzaprine HCl (Flexeril) 10 mg 1X ONCE 12/25/21 20:30 12/25/21 20:31 DC 12/25/21 20:27 10 MG Naproxen (Naprosyn) 500 mg 1X STAT 12/25/21 20:18 12/25/21 20:23 DC 12/25/21 20:28 500 MG Allergies: Allergies: Allergies Coded Allergies Type Severity Reaction Last Updated Verified codeine Allergy Severe Swelling 10/17/16 Yes doxycycline Allergy Severe Swelling 10/17/16 Yes Physical Exam: PE: Constitutional: Well developed, well nourished, no acute distress, non-toxic appearance. [] HENT: Normocephalic, atraumatic, bilateral external ears normal, oropharynx moist, no oral exudates, nose normal. [] Eyes: PERRLA, EOMI, conjunctiva normal, no discharge. [] Neck: Normal range of motion, no tenderness, supple, no stridor. [] Cardiovascular:Heart rate regular rhythm, no murmur [] Lungs & Thorax: Bilateral breath sounds clear to auscultation [] Abdomen: Bowel sounds normal, soft, no tenderness, no masses, no pulsatile masses. [] Skin: Warm, dry, no erythema, no rash. [] Back: Tenderness on palpation of the right lower lumbar spine especially around the SI joint, no midline lumbar spine tenderness, no CVA tenderness. Positive straight leg raise to the right lower extremity at approximately 45 degrees Extremities: Bilateral lower extremities with no obvious deformity. Tenderness on palpation of the right lateral hip. Full passive range of motion to the right hip including extension and extension of the right lower extremity, internal rotation and external rotation of the right hip. +2 right pedal pulse. Cap refill less than 2 seconds on right lower extremity. Neurologic: Alert and oriented X 3, normal motor function, normal sensory function, no focal deficits noted. [] Psychologic: Affect normal, judgement normal, mood normal. [] Current Patient Data: Vital Signs: Vital Signs Date Time Temp Pulse Resp B/P (MAP) Pulse Ox O2 Delivery O2 Flow Rate FiO2 12/25/21 20:27 16 97 Room Air 12/25/21 20:00 97.8 109 118/79 (92) 97.8 EKG: EKG: [] Radiology/Procedures: Radiology/Procedures: []PROCEDURE: HIP RIGHT 2V WITH PELVIS XR RIGHT HIP (WITH OR WITHOUT PELVIS) 2 VIEWS History: Reason: fall pain / Spl. Instructions: / History: Technique: AP view the pelvis and the 2 additional views of the right hip. Comparison: March 19, 2021 Findings: IUD projecting over the pelvis. Postoperative changes within the pelvis. No dislocation. No acute fracture. Impression: 1. No acute osseous abnormality. Electronically signed by: Jos Durand DO (12/25/2021 8:52 PM) [facility] DICTATED and SIGNED BY: JOS DURAND DO DATE: 12/25/212049 PROCEDURE: CT LUMBAR SPINE WO CONTRAST CT LUMBAR SPINE WO History:Reason: fall pain / Spl. Instructions: / History: Technique: Noncontrast CT was performed of the lumbar spine. Multiplanar reconstructions were performed. Exposure: One or more of the following individualized dose reduction techniques were utilized for this examination: 1. Automated exposure control 2. Adjustment of the mA and/or kV according to patient size 3. Use of iterative reconstruction technique. Comparison: None Findings: Normal vertebral body height and alignment. No fracture. T12-L1: No canal or neuroforaminal narrowing. L1-L2: No canal or neuroforaminal narrowing. L2-L3: Minimal disc bulge. No canal or neuroforaminal narrowing. L3-L4: Small disc bulge. No canal or neuroforaminal narrowing. L4-L5: Small disc bulge. Mild facet arthropathy. No canal narrowing. Left foraminal disc protrusion. Mild left neuroforaminal narrowing. L5-S1: Disc bulge. Mild facet arthropathy. No canal narrowing. Mild bilateral neuroforaminal narrowing. Impression: 1. No acute fracture or subluxation of the lumbar spine. 2. Mild lumbar spondylosis. Electronically signed by: Jos Durand DO (12/25/2021 9:15 PM) [facility] DICTATED and SIGNED BY: JOS DURAND DO DATE: 12/25/212111 Course & Med Decision Making: Course & Med Decision Making Pertinent Labs and Imaging studies reviewed. (See chart for details) This a 36-year-old female patient presenting to the ED today complaining of right low back pain and right hip pain, symptoms began after falling on . CT of the lumbar spine is negative for any acute findings, right hip x-rays including pelvis are negative. OTC pain relievers recommended. Discharged to home. Follow-up with Ortho/PCP in 1 week. Provided return precautions. Dragon Disclaimer: Dragon Disclaimer: This electronic medical record was generated, in whole or in part, using a voice recognition dictation system. Departure Departure Impression: Primary Impression: Low back pain Qualified Codes: M54.41 - Lumbago with sciatica, right side Additional Impressions: Fall from standing Qualified Codes: W19.XXXA - Unspecified fall, initial encounter Contusion of right hip Qualified Codes: S70.01XA - Contusion of right hip, initial encounter Disposition: HOME / SELF CARE / HOMELESS Condition: STABLE Referrals: NO PCP (PCP) ROXANNE BERNSTEIN II, MD follow up in one week Patient Instructions: Back Pain, Adult, Contusion, Fall Prevention and Home Safety Additional Instructions: You were evaluated in the emergency room for low back pain and right hip pain. Your x-rays of the right hip including pelvis as well as CT of the lumbar spine are negative for any acute findings. Please follow-up with your primary care doctor or the provided orthopedic doctor in a week SIDRA PRABHAKAR APRN Dec 25, 2021 20:42
--- NOTE | 2021-12-25 20:54 | RAD ---
XR RIGHT HIP (WITH OR WITHOUT PELVIS) 2 VIEWS History: Reason: fall pain / Spl. Instructions: / History: Technique: AP view the pelvis and the 2 additional views of the right hip. Comparison: March 19, 2021 Findings: IUD projecting over the pelvis. Postoperative changes within the pelvis. No dislocation. No acute fra cture. Impression: 1. No acute osseous abnormality. Electronically signed by: Jos Robledo DO (12/25/2021 8:52 PM) [facility]
--- NOTE | 2021-12-25 21:18 | RAD ---
CT LUMBAR SPINE WO History:Reason: fall pain / Spl. Instructions: / History: Technique: Noncontrast CT was performed of the lumbar spine. Multiplanar reconstructions were perform ed. Exposure: One or more of the following individualized dose reduction techniques were utilized for thi s examination: 1. Automated exposure control 2. Adjustment of the mA and/or kV according to patient size 3. Use of iterative reconstruction technique. Comparison: None Findings: Normal vertebral body height and alignment. No fracture. T12-L1: No canal or neuroforaminal narrowing. L1-L2: No canal or neuroforaminal narrowing. L2-L3: Minimal disc bulge. No canal or neuroforaminal narrowing. L3-L4: Small disc bulge. No canal or neuroforaminal narrowing. L4-L5: Small disc bulge. Mild facet arthropathy. No canal narrowing. Left foraminal disc protrusion. Mild left neuroforaminal narrowing. L5-S1: Disc bulge. Mild facet arthropathy. No canal narrowing. Mild bilateral neuroforaminal narrowi ng. Impression: 1. No acute fracture or subluxation of the lumbar spine. 2. Mild lumbar spondylosis. Electronically signed by: Jos Robledo DO (12/25/2021 9:15 PM) [facility]
[2021-12-25 21:50] VITALS: BP 118/79
== END 2021-12-25 21:50 | disposition home or self-care (01) ==
LOC: ER 19:58
DX: S70.01XA Contusion of right hip, initial encounter (principal); M54.41 Lumbago with sciatica, right side; J45.909 Unspecified asthma, uncomplicated; Z86.73 Personal history of transient ischemic attack (TIA), and cerebral infarction without residual deficits; F17.200 Nicotine dependence, unspecified, uncomplicated; W18.39XA Other fall on same level, initial encounter; Y93.21 Activity, ice skating; Y92.89 Other specified places as the place of occurrence of the external cause; Y99.8 Other external cause status
CPT/HCPCS: 72131; 73502; 81025; 99284-25